=== PATIENT | female | born 1935 | race Caucasian/White ===

== ENCOUNTER → 2016-06-03 | Outpatient (CLI) | payer OTHER, BC ==
[~2016-06-03] MED LIST: ASPCH81X PO; BISA10SU3 PR; CALCTAB5 PO; CHOLTAB3 PO; CRAN1CAP6 PO; FERR325T51 PO; FURO-85 PO; Folic Acid PO; GABA-112 PO; GLC500 PO; IBAN150T PO; LEVO75TA5 PO; LSN25 PO; MAGNSUS PO; MIRA1TAB3 PO; MULT-411; ONDA4TAB46 PO; POLY335019 PO; SITA1TAB27 PO; SODIENE PR; TRAM-10 PO; VIT B-12 PO; VIT E PO; VITA C PO; sodium chloride PO
== END | disposition home or self-care (01) ==
LOC: C.LAB 12:57
PROVIDERS: ATTEND Nurse Practitioner Family
DX: R32 Unspecified urinary incontinence (principal); R35.0 Frequency of micturition

== ENCOUNTER → 2016-09-17 | Outpatient (CLI) | payer OTHER, BC | END | disposition home or self-care (01) | LOC: C.LABSPEC 10:14 | PROVIDERS: ATTEND Urology | DX: H91.90 Unspecified hearing loss, unspecified ear (principal); H69.80 Other specified disorders of Eustachian tube, unspecified ear; E11.22 Type 2 diabetes mellitus with diabetic chronic kidney disease; N18.3 Chronic kidney disease, stage 3 (moderate); H74.8X9 Other specified disorders of middle ear and mastoid, unspecified ear; R30.0 Dysuria ==

== ENCOUNTER → 2016-10-30 | Outpatient (CLI) | payer OTHER, BC | END | disposition home or self-care (01) | LOC: C.LABSPEC 17:04 | PROVIDERS: ATTEND Urology | DX: R33.9 Retention of urine, unspecified (principal); N39.0 Urinary tract infection, site not specified; R32 Unspecified urinary incontinence; R35.0 Frequency of micturition ==

== ENCOUNTER → 2017-05-28 | Outpatient (CLI) | payer OTHER, BC | END | disposition home or self-care (01) | LOC: C.LABSPEC 17:48 | PROVIDERS: ATTEND Urology | DX: N39.0 Urinary tract infection, site not specified (principal); R32 Unspecified urinary incontinence; R35.0 Frequency of micturition ==

== ENCOUNTER → 2017-07-22 | Outpatient (CLI) | payer OTHER, BC | END | disposition home or self-care (01) | LOC: C.LABBC 15:13 | PROVIDERS: ATTEND Nurse Practitioner Adult Health | DX: N39.0 Urinary tract infection, site not specified (principal) ==

== ENCOUNTER → 2017-08-13 | Outpatient (CLI) | payer OTHER, BC ==
[2017-08-13 19:38] LABS: BLOOD UREA NITROGEN 42 mg/dl (7-18); CREATININE 0.77 mg/dl (0.60-1.20)
== END | disposition home or self-care (01) ==
LOC: C.LAB 17:01
PROVIDERS: ATTEND Nurse Practitioner Adult Health
DX: N39.0 Urinary tract infection, site not specified (principal)

== ENCOUNTER → 2017-08-18 | Outpatient (CLI) | payer OTHER, BC ==
[~2017-08-18] MED LIST changes: +OPTIRAY 320 IV PRN
--- NOTE | 2017-08-18 08:46 | DIAGNOSTIC IMAGING REPORT ---
ABD/PELVIS COMBO CLINICAL HISTORY: 82 years-old Female presenting with N39.0 Urinary tract infection, . TECHNIQUE: Multidetector CT of the abdomen and pelvis was performed before and after the administration of intravenous contrast. IV contrast: 118 mL of Optiray 320. A dose lowering technique was used consistent with the principles of ALARA (as low as reasonably achievable). COMPARISON: 09/29/2015. CT DOSE (mGy.cm): The estimated cumulative dose is 744.00 mGycm. FINDINGS: Employee Benefits Coordinator topogram: Scoliosis. Lung bases: Evidence of bronchiectasis and subpleural reticulation consistent with fibrotic change and chronic lung disease. Cicatrizing atelectasis with focal bronchiectasis in the medial segment of the right middle lobe. Normal heart size. Coronary artery, aortic valve, and minimal mitral annular calcification. No pericardial or pleural effusion. Liver: Normal morphology. Normal density. No liver lesion. Patent hepatic vasculature. Biliary: No intrahepatic or extrahepatic biliary ductal dilatation. Normal gallbladder. Pancreas: A portion of the pancreatic tail is contained within the large hiatal hernia. Pancreatic parenchyma grossly normal. Spleen: Parenchymal calcification suggest a history of chronic granulomatous infection. Adrenal glands: Poorly visualized. Kidneys and ureters: No nephrolithiasis. Subcentimeter hypodensity in the right kidney consistent with simple cyst. No additional renal lesion. Normal excretion of contrast from the bilateral kidneys. No filling defect in the renal collecting systems. No hydronephrosis. The left ureter is normal though mildly dilated. The right ureter is normal in the proximal portion and also mildly dilated though poorly opacified in the mid to distal portion. The mid to distal ureter remains poorly opacified on delayed imaging. Bladder: Polypoid filling defect or excreted unopacified urine noted in the region of the right lateral trigone at the right ureteropelvic junction. Diffuse wall thickening of the bladder is noted in addition to more significant wall thickening along the posterior bladder wall. Pelvic organs: Uterus surgically absent. Poorly delineated soft tissue in the pelvis may represent collapsed loops of small bowel but is indeterminate without oral contrast. Bowel: Marked stool burden in the cecum through the transverse colon. Bowel is poorly delineated without oral contrast. Left lower quadrant ostomy, which is likely the descending colon. Significant parastomal herniation of small bowel loops. No bowel obstruction. Feces noted in the distal small bowel suggesting delayed transit. Large hiatal hernia. Peritoneal cavity: No free fluid or intraperitoneal gas. Lymph nodes: No gross lymphadenopathy. Vasculature: Atherosclerosis of the normal caliber abdominal aorta. IVC patent. Abdominal wall: Unchanged appearance of the large parastomal hernia in the left mid abdomen. Mild body wall edema. Cachexia. Musculoskeletal: Degenerative changes of the spine. Osteopenia. Multiple compression deformities at the thoracolumbar junction have progressed since the prior exam and involve T11-L1. IMPRESSION: 1. Significant urinary bladder wall thickening, which could relate to infectious cystitis or postradiation change. However, urologic consultation for possible direct visualization is recommended given the degree of wall thickening on the posterior bladder. The apparent polypoid filling defect in the region of the right bladder trigone may represent excreted unopacified urine from the right ureter. 2. No evidence of a solid renal mass. Poor opacification of the mid to distal right ureter limits evaluation in this region. 3. Poorly delineated soft tissue in the pelvis may represent collapsed loops of bowel but is indeterminate without oral contrast. If there is clinical concern, repeat or subsequent evaluation should be performed with oral contrast. 4. Marked stool burden from the cecum to the transverse colon. This suggests constipation. 5. Stable appearance of the parastomal hernia. 6. Large hiatal hernia. 7. Evidence of chronic lung disease. 8. Progressive compression fractures at the thoracolumbar junction. Correlate for point tenderness as these are worse than on prior exam. The report will be called/faxed according to standard departmental protocol. Electronically signed by: Troy Méndez M.D. 08/18/2017 8:44 AM Dictated Date/Time: 08/18/2017 8:25 AM
== END | disposition home or self-care (01) ==
LOC: C.CTS 07:43
PROVIDERS: ATTEND Nurse Practitioner Adult Health
DX: R31.0 Gross hematuria (principal); N39.0 Urinary tract infection, site not specified; K44.9 Diaphragmatic hernia without obstruction or gangrene

== ENCOUNTER → 2017-08-20 | Outpatient (CLI) | payer OTHER, BC ==
[~2017-08-20] MED LIST changes: -OPTIRAY 320 IV PRN
== END | disposition home or self-care (01) ==
LOC: C.LABSPEC 12:43 → C.PATHSPEC 08-21 11:28
PROVIDERS: ATTEND Urology
DX: N39.0 Urinary tract infection, site not specified (principal); R32 Unspecified urinary incontinence; R35.0 Frequency of micturition

== ENCOUNTER → 2017-08-20 | Outpatient (CLI) | payer OTHER, BC ==
[2017-08-20 17:33] LABS: BLOOD UREA NITROGEN 34 mg/dl (7-18)
== END | disposition home or self-care (01) ==
LOC: C.LABBC 14:38
PROVIDERS: ATTEND Nurse Practitioner Adult Health
DX: N39.0 Urinary tract infection, site not specified (principal)

== ENCOUNTER 2019-09-20 02:16 | Inpatient (IN) ==
[2019-09-20] MEDS ORDERED: fentaNYL citrate 100 MCG/2 ML VIAL IV ONE (02:56)
[2019-09-20] MEDS ORDERED: ONDANSETRON INJ 2 MG/ML 2 ML VIAL IV STA (02:56)
--- NOTE | 2019-09-20 03:35 | Emergency Department Note ---
Impression & Plan Fracture, ribs, Fall, Acute electrocardiogram changes, Acute dehydration ED Provider Note NAME: MAR DESAI AGE: 84 SEX: F ARRIVES VIA: Family Vehicle INFORMANT: Patient and the patient's daughter ED PROVIDER(S): Rajni Phillips DO CHIEF COMPLAINT: Left-sided back pain PLAN: Disposition: Admitted to the [facility] Condition: Fair MEDICAL DECISION MAKING: This is an 84-year-old female patient who presents to the emergency department after suffering a fall at home around 930 this evening. The patient has a history of compression fractures but increasing pain to the left side of her back. Patient's family brought her here for evaluation. The patient is CT scan of her thoracic spine and lumbar spine which showed evidence of old thoracic and lumbar compression fractures and rib fractures on the left. However, given the patient's acute trauma on physical exam, I am concerned that the rib fractures noted on CT are acute. The patient continued to have significant pain with any type of even slight movement despite receiving IV pain meds. Patient was also n oted to be somewhat dehydrated with a BUN greater than 40. She was given a bolus of IV normal saline solution. I remain concerned because the patient's EKG was significantly different than 1 from 2018. Troponin was negative but I felt she would require additional cardiac work-up. [facility] and [facility] will evaluate for further management. Triage Nursing notes reviewed and agree them. Additional history obtained from the patient's daughter who is at the bedside Prior medical records reviewed Vital Signs: reviewed and were unremarkable Differential diagnosis: Rib fractures, compression fractures, T-spine fractures, L-spine fractures, pneumothorax, ER treatment provided: IV analgesia, IV antiemetics, IV normal saline solution Diagnostics interpreted by me: ECG: Normal sinus rhythm at 62 with T wave inversions laterally and in leads I and aVL which is a new finding compared to January 24, 2018. This is concerning for ischemic changes. Cardiac Monitoring: Normal sinus rhythm at a rate of 60 Laboratory studies: See below Imaging studies:as per stat rad CT L-spine: There is a compression fracture deformity at the level of L1 with 40% loss of anterior height there is an anterior osteophyte and some sclerosis. There are degenerative changes with intervertebral disc space narrowing at L2- L3, L3-L4, and L4-L5. There are small posterior osteophytes. Impression: Compression fracture deformity at L1 likely chronic. Correlation with prior studies are recommended. CT T-spine: At T5 there is a compression fracture with 25% general loss of height and 50% anterior wedging. Posterior vertebral body wall bows into the spinal canal by an estimated 2 mm at T8 there is a compression fracture with 50% anterior wedging posterior vertebral body wall extends into the spinal canal estimated 2 mm at T11 there is a compression fracture with 60% anterior wedging at T12 there is a compression fracture with 40% anterior wedging. Impression multiple compression fractures are age-indeterminate. The presence of osteophyte formation and sclerosis suggests these may reflect chronic fractures. However there may be an acute superimposed component. Direct impression of prior studies to evaluate for changes recommended. Old appearing left-sided rib fractures. Consultation(s): None HPI: 84/F arrives for evaluation of a fall with severe left-sided mid back pain. This is an 84-year-old female patient who lost her balance around 930 tonight and fell backwards while pushing her Rollator. The patient tried to go to sleep but cannot because of the pain. She states that the pain is so bad that she cannot even cough. The patient does have a history of compression fractures but feels something much more acute. The patient denies striking her head or losing consciousness. ROS: See above HPI for pertinent positives & negatives. A total of 10 systems reviewed and were otherwise negative. PAST MEDICAL HISTORY:See Below PAST SURGICAL HISTORY:See Below FAMILY HISTORY:See Below SOCIAL HISTORY:Lives with her daughter HOME MEDICATIONS:See list ALLERGIES:None VITALS:See Below PHYSICAL EXAMINATION: HEENT: Head - normocephalic and atraumatic. Pupils are equal, round, and reactive to light. Extraocular eye muscles are intact and sclera are anicteric. Nose - moist nasal mucosa without evidence of trauma or discharge. Mouth - moist buccal mucosa with no trauma to the teeth or signs of malocclusion. Neck: The neck is supple and there is no pain to palpation over the posterior cervical spine and no obvious step-offs or deformities. There is no JVD or tracheal deviation. Chest: There are no signs of deformities, contusions or abrasions to the chest wall. There is no obvious crepitus or paradoxical chest rise. Heart: Regular, rate, and rhythm. There is a normal S1 and S2 with no murmurs, clicks, or gallops appreciated. Lungs: Clear to auscultation bilaterally with no wheezes, rales, or rhonchi. Abdomen: Soft, completely nontender, nondistended, with good bowel sounds. There is no sign of trauma such as contusions, abrasions or penetrations. There are no palpable pulsatile masses or hepatosplenomegaly. There is no guarding, rigidity, or rebound noted. Pelvis: Stable to rock and compression. Extremities: No obvious trauma, deformities, contusions, or edema. There are easily palpable peripheral pulses. Neuro: The patient is awake and alert and easily able to follow commands. Muscle strength is 5 out of 5 in all 4 extremities. Otherwise, neuro exam is unremarkable. Back: We sat the patient forward. There is obvious curvature of the spine. The entire thoracic, lumbar, and sacral spine were palpated. There is an obvious contusion noted over the left mid back with pain to palpation in that area and some edema. The patient has pain with palpation to the ribs in that area. ED COURSE: Times/Reassessments: 0240: The patient was evaluated in room C9. A complete history and physical was performed. An order was placed for continuous cardiac monitoring. The patient remains in a normal sinus rhythm at a rate of 60. An IV lock was initiated and labs were drawn as above. A twelve-lead EKG was obtained and was compared to an old one was significantly different. Additional laboratory studies were added. The patient will go for CT scan of the T-spine and L-spine Patient was given IV fentanyl and IV Zofran for pain and nausea. 0420: The patient was rechecked at this time and was actually sleeping. The patient's labs reveal some dehydration with a BUN greater than 40. She was given a 500 cc bolus of saline. 445: The patient was rechecked at this time and remains uncomfortable. I reviewed the results of the labs and CT scans with the daughter. She voiced concern that the patient is still so uncomfortable that she would not be able to get around at home comfortably. I agree with this. I am also concerned about the EKG changes noted in comparison to an EKG from January 2018. [facility] and they can or evaluate for further management. Rajni Phillips, DO Past Med/Surg History Medical History (Updated 09/20/19 @ 08:33 by Rajni Phillips DO) Chronic kidney disease, stage III (moderate) (Chronic) Closed fracture of ankle (Chronic Unknown) "S/P ORIF " Degenerative scoliosis (Chronic) Diabetes (Chronic) Hyperglycemia (Chronic) Hyponatremia Hypothyroidism (Chronic) Rectal prolapse (Chronic) Rectal prolapse (Chronic) Rib fractures (Chronic) Sepsis (Acute 06/14/13) UTI (urinary tract infection) (Chronic) UTI (urinary tract infection) (Acute) Vertebral compression fracture (Chronic) Surgical History (Updated 01/26/18 @ 20:23 by Derian Tapia) Colostomy in place (Chronic) History of colostomy (Chronic) History of left knee replacement (Chronic) Social History (Updated 01/24/18 @ 19:27 by Gwendolyn [place] DO) Preferred Language: Setswana Communication Ability: Effective Swager Operator Required: No Beliefs That Will Affect Care: None marital status: / Current Living Situation: Family Feels Safe at Home: Yes Smoking Status: Never smoker Second Hand Exposure: No ; Hx Alcohol Use: No Hx Substance Use: No Allergies Allergies Allergy/AdvReac Type Severity Reaction Status Date / Time No Known Drug Allergies Allergy Unknown Verified 09/20/19 03:31 Home Meds Home Medications Medication Instructions Recorded Confirmed Caltrate 600 plus D 1 tab PO BID 01/24/18 09/20/19 Centrum Silver Women 1 tab PO DAILY 01/24/18 09/20/19 ascorbic acid (vitamin C) [Vitamin 500 mg PO DAILY 01/24/18 09/20/19 C] cranberry extract 250 mg PO DAILY 01/24/18 09/20/19 levothyroxine 75 mcg PO DAILY 01/24/18 09/20/19 lisinopril 2.5 mg PO DAILY 01/24/18 09/20/19 polyethylene glycol 3350 [Miralax] 8.5 g PO BID 01/24/18 09/20/19 vitamin E 200 unit PO DAILY 01/24/18 09/20/19 acetaminophen [Acetaminophen Extra 500 mg PO QPM 09/20/19 09/20/19 Strength] aspirin 81 mg PO DAILY 09/20/19 09/20/19 cyanocobalamin (vitamin B-12) 500 mcg PO DAILY 09/20/19 09/20/19 ferrous gluconate 240 mg PO DAILY 09/20/19 09/20/19 folic acid 0.8 mg PO DAILY 09/20/19 09/20/19 metformin 500 mg PO DAILY 09/20/19 09/20/19 Previous Rx's Medication Instructions Recorded teriparatide 20 mcg/dose (600 20 mcg SQ DAILY #2.4 ml 01/20/19 mcg/2.4 mL) subcutaneous pen injector mirabegron 50 mg tablet,extended 50 mg PO DAILY #90 tab 02/23/19 release 24 hr calcitriol 0.25 mcg capsule 0.25 mcg PO DAILY #30 cap 04/28/19 amoxicillin 500 mg tablet 500 mg PO DAILY #90 tab 09/07/19 Results & Data (ED) Vital Signs Vital Signs - 24 hr 09/20/19 02:18 09/20/19 03:22 09/20/19 03:49 Temperature 36.8 C Temperature Source Oral Pulse Rate 71 Pulse Rate [Bilateral Apical] 62 61 Respiratory Rate 16 20 16 Respiratory Depth Normal Blood Pressure 177/91 H Blood Pressure [Right Arm] 140/68 151/65 H Blood Pressure Mean 119 Blood Pressure Mean [Right Arm] 92 93 Pulse Oximetry 98 94 100 Oxygen Delivery Method Room Air Room Air Nasal Cannula Oxygen Flow Rate 3 Sepsis Recent Fever Within 48 Hours No Sepsis New/Unexplained Change in Mental Status No Sepsis Action Taken by Nursing No Action Required 09/20/19 06:12 Temperature Temperature Source Pulse Rate Pulse Rate [Bilateral Apical] 60 Respiratory Rate 18 Respiratory Depth Blood Pressure Blood Pressure [Right Arm] 146/73 H Blood Pressure Mean Blood Pressure Mean [Right Arm] 97 Pulse Oximetry 100 Oxygen Delivery Method Room Air Oxygen Flow Rate Sepsis Recent Fever Within 48 Hours Sepsis New/Unexplained Change in Mental Status Sepsis Action Taken by Nursing Laboratory Data Result diagrams: 09/20/19 03:01 09/20/19 03:01 Lab Results 09/20/19 09/20/19 09/20/19 Range/Units 03:01 03:01 03:01 WBC 9.16 (4.8-10.8) K/uL RBC 3.62 L (4.2-5.4) M/uL Hgb 11.1 L (12.0-16.0) g/dL Hct 34.7 L (37-47) % MCV 95.9 (80-100) fL MCH 30.7 (25-34) pg MCHC 32.0 (32-36) g/dL RDW Std Deviation 48.0 H (36.4-46.3) fL RDW Coeff of Franchesca 13.8 (11.5-14.5) % Plt Count 235 (130-400) K/uL MPV 10.3 (7.4-10.4) fL Immature Gran % (Auto) 0.2 % Neut % (Auto) 79.1 % Lymph % (Auto) 6.6 % Elk % (Auto) 12.4 % Eos % (Auto) 1.5 % Baso % (Auto) 0.2 % Immature Gran # (Auto) 0.02 (0.00-0.02) K/uL Neut # (Auto) 7.24 H (1.4-6.5) K/uL Lymph # (Auto) 0.60 L (1.2-3.4) K/uL Elk # (Auto) 1.14 H (0.11-0.59) K/uL Eos # (Auto) 0.14 (0-0.5) K/uL Baso # (Auto) 0.02 (0-0.2) K/uL Sodium 138 (136-145) mmol/L Potassium 4.3 (3.5-5.1) mmol/L Chloride 102 (98-107) mmol/L Carbon Dioxide 31 (21-32) mmol/L Anion Gap 5.0 (3-11) BUN 41 H (7-18) mg/dl Creatinine 0.77 (0.6-1.2) mg/dl Est Cr Clr Drug Dosing Not Reportable Est GFR ( Amer) 81.0 Est GFR (Non-Af Amer) 69.9 BUN/Creatinine Ratio 53.9 H (10-20) Glucose 147 H (70-99) mg/dl Calcium 11.3 H (8.5-10.1) mg/dl Total Bilirubin 0.3 (0.2-1) mg/dl AST 23 (15-37) U/L ALT 17 (12-78) U/L Alkaline Phosphatase 60 (45-117) U/L Troponin I 0.019 (0-0.045) ng/ml Total Protein 7.5 (6.4-8.2) gm/dl Albumin 3.7 (3.4-5.0) gm/dl Globulin 3.8 (2.5-4.0) gm/dl Albumin/Globulin Ratio 1.0 (0.9-2) Administered Medications Discontinued Medications Fentanyl Citrate (Fentanyl Citrate) 25 mcg IV NOW ONE Stop: 09/20/19 02:57 Last Admin: 09/20/19 03:21 Dose: 25 mcg Documented by: [id number] Sodium Chloride (Nss) 500 mls @ 999 mls/hr IV .Q31M ONE Stop: 09/20/19 04:45 Last Infusion: 09/20/19 05:11 Dose: 0 mls/hr Documented by: [id number] Admin: 09/20/19 04:27 Dose: 999 mls/hr Documented by: [id number] Morphine Sulfate (Morphine Sulfate) Confirm Administered Dose 4 mg .ROUTE .STK- MED ONE Stop: 09/20/19 06:51 Last Admin: 09/20/19 06:59 Dose: 4 mg Documented by: [id number] Ondansetron HCl (Zofran) 4 mg IV NOW STA Stop: 09/20/19 02:57 Last Admin: 09/20/19 03:12 Dose: 4 mg Documented by: [id number] Discharge Plan Visit Data *Final* Discharge Date/Time: 09/20/19 07:01 Chief Complaint: Fall Stated Complaint: FALL, HURT BACK AND LEFT SIDE ED Provider: Rajni Phillips Discharge Problem: Fracture, ribs, Fall, Acute electrocardiogram changes, Acute dehydration Patient Disposition: Admitted As Inpatient Discharge Instructions Interventions: ED Discharge Assessment Last Done: 09/20/19 07:01 Discharge Problem: Fracture, ribs Qualifiers: Encounter type: initial encounter Rib fracture type: multiple ribs Fracture type: closed Laterality: left Qualified Code(s): S22.42XA - Multiple fractures of ribs, left side, initial encounter for closed fracture Fall Qualifiers: Encounter type: initial encounter Qualified Code(s): W19.XXXA - Unspecified fall, initial encounter
[2019-09-20 03:41] LABS: Basophils # (auto) 0.02 K/uL (0-0.2); Basophils % (auto) 0.2 %; Eosinophils # (auto) 0.14 K/uL (0-0.5); Eosinophils % (auto) 1.5 %; Hematocrit (blood only) 34.7 % (37-47); Hemoglobin 11.1 g/dL (12.0-16.0); Immature Granulocytes # (auto) 0.02 K/uL (0.00-0.02); Immature Granulocytes % (auto) 0.2 %; Lymphocytes % (auto) 6.6 %; Mean Corpuscular Hemoglobin 30.7 pg (25-34); Mean Corpuscular Volume 95.9 fL (80-100); Mean Platelet Volume 10.3 fL (7.4-10.4); Monocytes # (auto) 1.14 K/uL (0.11-0.59); Monocytes % (auto) 12.4 %; Neutrophils # (auto) 7.24 K/uL (1.4-6.5); Neutrophils % (auto) 79.1 %; Platelet Count 235 K/uL (130-400); RDW Coefficient of Variation 13.8 % (11.5-14.5); Red Blood Count 3.62 M/uL (4.2-5.4); White Blood Count 9.16 K/uL (4.8-10.8)
[2019-09-20 04:01] LABS: Alanine Aminotransferase 17 U/L (12-78); Albumin Level 3.7 gm/dl (3.4-5.0); Aspartate Aminotransferase 23 U/L (15-37); BUN Creatinine Ratio 53.9 (10-20); Blood Urea Nitrogen 41 mg/dl (7-18); Calcium 11.3 mg/dl (8.5-10.1); Carbon Dioxide 31 mmol/L (21-32); Chloride 102 mmol/L (98-107); Est GFR (Non-African American) 69.9; Glucose 147 mg/dl (70-99); Potassium 4.3 mmol/L (3.5-5.1); Sodium 138 mmol/L (136-145)
[2019-09-20 04:04] LABS: Alkaline Phosphatase 60 U/L (45-117); Bilirubin,Total 0.3 mg/dl (0.2-1); Globulin 3.8 gm/dl (2.5-4.0); Total Protein 7.5 gm/dl (6.4-8.2)
[2019-09-20] MEDS ORDERED: SODIUM CHLORIDE 0.9% 500 ML IV ONE (04:15)
[2019-09-20] MEDS ORDERED: MoRPHine SULFATE 10 MG/ML CARP/VIAL IV PRN (06:33)
[2019-09-20] MEDS ORDERED: MoRPHine SULFATE 4 MG/ML 1 ML CARP\\VIAL ONE (06:50)
--- NOTE | 2019-09-20 07:02 | History & Physical Report ---
Date of Service September 20, 2019 Assessment & Plan Admission and Anticipated Discharge Date Admission Date: 84 yo F w/ PMHx. of CKD, compression fx. of T8, hypothyroidism, diabetes, colostomy, and left knee replacement who is presenting after a fall that could be mechanical, but will need to be evaluated for cardiac origin, less likely neurologic cause given no focal neurologic findings and no post ictal state. Deconditioning, progressive over the last couple months - OT/PT ordered Cardiac evaluation w/ abnormal EKG - cardiology consulted - initial troponin nl, will get serial troponin - TTE ordered - continue to follow electrolytes with AM CMP Acute pain - Morphine for severe pain - Lidoderm patch Compression fracture of thoracic spine - ordered orthopedic consult to evaluate for potential kyphoplasty DVT: lovenox Diet: regular Code: DNR/DNI History of Present Illness Chief Complaint: fall Primary Care Provider: Krunal Salcido Keila Gonzales fell backwards at 9:30PM 09/18. She had a lot of pain after this and at 1-1:30 daughter Bev Reece brought her to the ER. The daughter was able to help give some of the history. She states shat she did not see her mom fall, but heard her and then came to see her mom on the floor. She did not think that her mom hit her head. She was going from the bedroom to the bathroom and did note there was light in the room and no carpet. Daughter noticed a large lump on her left side of her back. She has never had a prior event like this but pt. has degenerative scoliosis and progressive limitations with mobility over the last couple months. Daughter explains difficulty initiation walking and trouble lifting her feet up. She was using a walker with wheels on it. After the fall she was slowly brought up to a chair and then was able to walk, but had increased pain. Daughter states that she did not see any abnormal movements when she found her mother on the floor. When asking Keila Gonzales about what happened she explained that she lost her balance and fell backward, she did not hit anything on the way down and fell on her spine. She remembers the events prior to falling, the fall and after falling. No recent medication changes, no recent illnesses, no travel. Allergies Allergy/AdvReac Type Severity Reaction Status Date / Time No Known Drug Allergies Allergy Unknown Verified 09/20/19 03:31 Home Medications Home Medications Medication Instructions Recorded Confirmed Type Caltrate 600 plus D 1 tab PO BID 01/24/18 09/20/19 History Centrum Silver Women 1 tab PO DAILY 01/24/18 09/20/19 History ascorbic acid (vitamin C) [Vitamin 500 mg PO DAILY 01/24/18 09/20/19 History C] cranberry extract 250 mg PO DAILY 01/24/18 09/20/19 History levothyroxine 75 mcg PO DAILY 01/24/18 09/20/19 History vitamin E 200 unit PO DAILY 01/24/18 09/20/19 History teriparatide 20 mcg/dose (600 20 mcg SQ DAILY #2.4 ml 01/20/19 09/20/19 Rx mcg/2.4 mL) subcutaneous pen injector mirabegron 50 mg tablet,extended 50 mg PO DAILY #90 tab 02/23/19 09/20/19 Rx release 24 hr calcitriol 0.25 mcg capsule 0.25 mcg PO DAILY #30 cap 04/28/19 09/20/19 Rx amoxicillin 500 mg tablet 500 mg PO DAILY #90 tab 09/07/19 09/20/19 Rx acetaminophen [Acetaminophen Extra 500 mg PO QPM 09/20/19 09/20/19 History Strength] aspirin 81 mg PO DAILY 09/20/19 09/20/19 History cyanocobalamin (vitamin B-12) 500 mcg PO DAILY 09/20/19 09/20/19 History ferrous gluconate 240 mg PO DAILY 09/20/19 09/20/19 History folic acid 0.8 mg PO DAILY 09/20/19 09/20/19 History metformin 500 mg PO DAILY 09/20/19 09/20/19 History acetaminophen [Mapap 650 mg PO Q4H PRN #30 tab 09/24/19 Rx (acetaminophen)] calcitonin (salmon) 1 spray NA QAM #3.7 ml 09/24/19 Rx lidocaine 1 patch TRANSDERMAL QAM #15 ea 09/24/19 Rx magnesium hydroxide [Milk of 30 ml PO Q6H PRN #118 ml 09/24/19 Rx Magnesia] polyethylene glycol 3350 [Miralax] 17 g PO BID #0 ea 09/24/19 09/20/19 Rx sennosides-docusate sodium 1 tab PO QAM #30 tab 09/24/19 Rx [Senokot-S] tapentadol [Nucynta ER] 50 mg PO Q12 #60 tab 09/24/19 Rx tapentadol [Nucynta] 50 mg PO Q4H PRN #30 tab 09/24/19 Rx Past Med/Surg History Medical History (Updated 09/24/19 @ 08:54 by Krunal Lucio PA-C) Chronic kidney disease, stage III (moderate) (Chronic) Closed fracture of ankle (Inactive ~2011) "S/P ORIF " Degenerative scoliosis (Inactive) Feeling of incomplete bladder emptying (Inactive) Frequent UTI (Inactive) Gross hematuria (Inactive 03/2019) Hyponatremia (2018) Impacted cerumen of both ears Neurogenic bladder (Inactive) Non-traumatic compression fracture of T8 thoracic vertebra (Inactive 2018) Osteoporosis Rectal prolapse (Inactive) Rib fractures (Inactive 2017) Sepsis (Acute 2013) Urinary incontinence (Inactive) Surgical History Colostomy in place (Chronic) History of left knee replacement (Inactive) Family History No significant past medical history Social History Preferred Language: Maori Communication Ability: Effective Food Products Tester Required: No Beliefs That Will Affect Care: None marital status: / Current Living Situation: Family Feels Safe at Home: Yes Smoking Status: Never smoker Second Hand Exposure: No ; Hx Alcohol Use: No Hx Substance Use: No Review of Systems Review of Systems: Constitutional: denies fever, chills, nausea or vomiting Head: denies trauma, LOC Neuro: denies slurring of speech, focal weakness GI: denies new constipation or abdominal pain Cardiac: denies chest pain or palpitations : denies changes in frequency Physical Exam Constitutional: + thin; no acute distress Eyes: PERRL, conjunctivae normal, anicteric sclerae EOM intact bilaterally ENMT: external ear and nose normal, oropharynx normal Neck: trachea midline, no thyromegaly Respiratory: normal respiratory effort, lungs clear to auscultation Cardiovascular: RRR, no murmur, no edema Vessels: no JVD and no carotid bruit Extremities: no edema Gastrointestinal (Abdomen): normal bowel sounds, soft, nontender, no hepatosplenomegaly Musculoskeletal: Strength intact in the upper extremity Bruising and tenderness in the thoracic Neurologic: CN's II-XI intact bilaterally; no focal motor deficits Speech / Cognition: normal speech Psychiatric: A+Ox3, euthymic affect Results & Data Results & Data ([facility]) Vital Signs (Past 12 Hours) Vital Signs Temp Pulse Pulse Resp BP BP Pulse Ox 09/20/19 06:12 60 18 146/73 H 100 09/20/19 03:49 61 16 151/65 H 100 09/20/19 03:22 62 20 140/68 94 09/20/19 02:18 36.8 C 71 16 177/91 H 98 Code Status & VTE Plan Code Status DNR/DNI VTE Prophylaxis Plan VTE Prophylaxis will be ordered: Yes Supervising Physician Co-Signing Physician Notes Attending addendum: I have physically seen this patient, have supervised the medical residents activities, and agree with the H&P unless as otherwise noted. Assessment and Plan: Abnormal EKG- The patient will be admitted to telemetry for serial cardiac enzymes, serial EKG's, cardiac rhythm monitoring and a 2-D echocardiogram with Dopplers. Follow serial laboratories. Consult cardiology. Multiple thoracic spine fractures with anterior wedging varying from 40 to 60%- Consult orthopedics for possible intervention with kyphoplasty. If not amenable to kyphoplasty, will consult pain management. Remainder of orders and notations as noted. Resident Activity Tracking Resident Involvement: Resident Care Provided Care Provided: Adult Hospital Medicine
[2019-09-20] MEDS ORDERED: MAGNESIUM HYDROXIDE SUSP 30 ML UDC PO PRN (07:38)
[2019-09-20] MEDS ORDERED: ALUMINUM/MAGNESIUM SUSP 30 ML UDC PO PRN (07:38)
[2019-09-20] MEDS ORDERED: ONDANSETRON INJ 2 MG/ML 2 ML VIAL IV PRN (07:38)
--- NOTE | 2019-09-20 07:45 | CT Scan Report ---
CT OF THE THORACIC SPINE CLINICAL HISTORY: fall - left sided trauma COMPARISON STUDY: Chest CT January 19, 2018. Thoracic spine radiographs August 17, 2018. TECHNIQUE: Helical axial images of the thoracic spine were obtained. Sagittal and coronal reconstru ctions were viewed. Automated exposure control was utilized for the study. A dose lowering techniqu e was utilized adhering to the principles of ALARA. FINDINGS: Note is made of severe compression fractures of T5, T8 T11, T12 and L1. The T5 fracture is new since CT of January 19, 2018 however is sclerotic. This fracture is likely chronic. The remainde r of the compression fractures were present on prior exam and are chronic. There is mild retropulsion at several levels. Note is made of acute appearing nondisplaced fractures of the left transverse pro cesses of T9 and T10. Note is made of multiple old bilateral rib fractures. In addition, there are ac [place] fractures of the posterolateral left eighth through 11th ribs. These are nondisplaced. No pneumot horax is shown within visualized portions of the chest. There is biapical scarring. Subpleural opacit ies reflect atelectasis. Large hiatal hernia is present. IMPRESSION: 1. Acute appearing nondisplaced fractures of the left transverse processes of T9 and T10. 2. Numerous old thoracic spine compression fractures, as described above. 3. Acute nondisplaced fractures of the left eighth through 11th ribs. No pneumothorax. Findings discussed with Dr. Bosch at time of dictation. ACT 112: Negative or not required by law. Electronically signed by: Thiago Aly M.D. 09/20/2019 7:43 AM
--- NOTE | 2019-09-20 07:47 | CT Scan Report ---
CT lumbar spine wo con CT DOSE: CLINICAL HISTORY: Back pain status post trauma TECHNIQUE: Helical images were acquired in transverse plane. Reformatted sagittal and coronal images were reviewed. A dose lowering technique was utilized adhering to the principles of ALARA. CONTRAST: No contrast was administered COMPARISON STUDY: MRI dated 07/12/2011 FINDINGS: L1-2 level: There is no evidence of significant disc bulge or focal herniation. There is no evidence of spinal or foraminal stenosis. L2-3 level: There is marked disc desiccation. There is mild posterior osteophytic spurring. There is moderate spinal canal narrowing. There is no significant foraminal stenosis L3-4 level: There is marked disc degeneration. There is minor spinal canal narrowing. There is facet joint arthropathy. There is mild left-sided foraminal narrowing L4-5 level: Diffuse circumferential disc bulge. There is disc degeneration. There is minor spinal can al narrowing. There is moderate left-sided foraminal narrowing. L5-S1 level: There is circumferential disc bulge. There is mild to moderate spinal canal narrowing. T here is left greater than right foraminal narrowing. The bones are osteopenic. There is an old moderate to severe L1 compression fracture. There is an inf erior endplate T12 compression deformity. No acute fractures or traumatic subluxations are visualized . IMPRESSION: 1. Old L1 compression fracture 2. No acute fractures or traumatic subluxations 3. Multilevel spondylytic changes ACT 112: Negative or not required by law. Electronically signed by: Kwesi Watters M.D. 09/20/2019 7:46 AM
[2019-09-20] MEDS ORDERED: PATIENT'S HEIGHT AND/OR WEIGHT NEEDED SCH (08:15)
--- NOTE | 2019-09-20 08:20 | Orthopedic Consultation ---
Date of Consultation September 20, 2019 Assessment & Plan (1) Fracture of thoracic transverse process: At this time patient does have multiple subacute to chronic fractures throughout the thoracolumbar spine. Her injury today is consistent with transverse process fractures of mid thoracic region. These would be treated nonoperatively. She will require pain control. I would not brace her for these injuries. She should avoid lifting anything greater than 5 pounds. I suspect she will progress appropriately throughout the next few weeks. Present on Admission?: Yes History of Present Illness Reason for Consultation: Back pain status post fall Attending Physician: Hill Powell MD History of Present Illness This is an 84-year-old female unfortunately with a fall yesterday at home. She comes emergency room with difficulties secondary to pain. Symptoms are mostly i n the mid thoracic region. She denies any leg pain arm pain numbness or tingling to the extremities. Allergies Allergy/AdvReac Type Severity Reaction Status Date / Time No Known Drug Allergies Allergy Unknown Verified 09/20/19 03:31 Home Medications Home Medications Medication Instructions Recorded Confirmed Type Caltrate 600 plus D 1 tab PO BID 01/24/18 09/20/19 History Centrum Silver Women 1 tab PO DAILY 01/24/18 09/20/19 History ascorbic acid (vitamin C) [Vitamin 500 mg PO DAILY 01/24/18 09/20/19 History C] cranberry extract 250 mg PO DAILY 01/24/18 09/20/19 History levothyroxine 75 mcg PO DAILY 01/24/18 09/20/19 History lisinopril 2.5 mg PO DAILY 01/24/18 09/20/19 History polyethylene glycol 3350 [Miralax] 8.5 g PO BID 01/24/18 09/20/19 History vitamin E 200 unit PO DAILY 01/24/18 09/20/19 History teriparatide 20 mcg/dose (600 20 mcg SQ DAILY #2.4 ml 01/20/19 09/20/19 Rx mcg/2.4 mL) subcutaneous pen injector mirabegron 50 mg tablet,extended 50 mg PO DAILY #90 tab 02/23/19 09/20/19 Rx release 24 hr calcitriol 0.25 mcg capsule 0.25 mcg PO DAILY #30 cap 04/28/19 09/20/19 Rx amoxicillin 500 mg tablet 500 mg PO DAILY #90 tab 09/07/19 09/20/19 Rx acetaminophen [Acetaminophen Extra 500 mg PO QPM 09/20/19 09/20/19 History Strength] aspirin 81 mg PO DAILY 09/20/19 09/20/19 History cyanocobalamin (vitamin B-12) 500 mcg PO DAILY 09/20/19 09/20/19 History ferrous gluconate 240 mg PO DAILY 09/20/19 09/20/19 History folic acid 0.8 mg PO DAILY 09/20/19 09/20/19 History metformin 500 mg PO DAILY 09/20/19 09/20/19 History Patient History Medical History (Updated 09/20/19 @ 08:18 by Ranjan Pineda DO) Chronic kidney disease, stage III (moderate) (Chronic) Closed fracture of ankle (Chronic Unknown) "S/P ORIF " Degenerative scoliosis (Chronic) Diabetes (Chronic) Hyperglycemia (Chronic) Hyponatremia Hypothyroidism (Chronic) Rectal prolapse (Chronic) Rectal prolapse (Chronic) Rib fractures (Chronic) Sepsis (Acute 06/14/13) UTI (urinary tract infection) (Chronic) UTI (urinary tract infection) (Acute) Vertebral compression fracture (Chronic) Surgical History (Updated 01/26/18 @ 20:23 by Derian Tapia) Colostomy in place (Chronic) History of colostomy (Chronic) History of left knee replacement (Chronic) Social History (Updated 01/24/18 @ 19:27 by Gwendolyn [place] DO) Preferred Language: Kazakh Communication Ability: Effective Warp Hauler Required: No Beliefs That Will Affect Care: None marital status: / Current Living Situation: Family Feels Safe at Home: Yes Smoking Status: Never smoker Second Hand Exposure: No ; Hx Alcohol Use: No Hx Substance Use: No Physical Exam Physical Exam: Patient is alert and oriented. She is able to move her arms and legs without evidence of antalgia. Reasonable strength to testing. Results & Data ([facility]) Vital Signs (Past 12 Hours) Vital Signs Temp Pulse Pulse Resp BP BP Pulse Ox 09/20/19 06:12 60 18 146/73 H 100 09/20/19 03:49 61 16 151/65 H 100 09/20/19 03:22 62 20 140/68 94 09/20/19 02:18 36.8 C 71 16 177/91 H 98
[2019-09-20] MEDS: LIDOCAINE 5% 1 PATCH TD SCH (09:14)
[2019-09-20] MEDS: MIRABEGRON ER 25 MG TAB PO SCH (09:14)
[2019-09-20] MEDS: LEVOTHYROXINE SODIUM 75 MCG TABLET PO SCH (09:15)
[2019-09-20] MEDS: ASPIRIN 81 MG ECTAB PO SCH (09:15)
--- NOTE | 2019-09-20 09:40 | Electrocardiogram Report ---
Test Reason : Blood Pressure : / mmHG Vent. Rate : 062 BPM Atrial Rate : 062 BPM P-R Int : 178 ms QRS Dur : 132 ms QT Int : 432 ms P-R-T Axes : 046 -57 177 degrees QTc Int : 438 ms Poor data quality, interpretation may be adversely affected Normal sinus rhythm Left axis deviation Non-specific intra-ventricular conduction block Marked T wave abnormality consider anterolateral ischemia Abnormal ECG When compared with ECG of 24-JAN-2018 13:55, T-wave inversion in Anterolateral leads now present Confirmed by Ulysses De Leon ([id number]) on 09/20/2019 9:39:47 AM Referred By: REFERRED SELF Confirmed By:Ulysses De Leon
--- NOTE | 2019-09-20 09:48 | Electrocardiogram Report ---
Test Reason : Blood Pressure : / mmHG Vent. Rate : 074 BPM Atrial Rate : 074 BPM P-R Int : 172 ms QRS Dur : 126 ms QT Int : 380 ms P-R-T Axes : 047 -55 130 degrees QTc Int : 421 ms Normal sinus rhythm Left axis deviation Non-specific intra-ventricular conduction block T wave abnormality, consider anterolateral ischemia Abnormal ECG When compared with ECG of 20-Sep-2019 03:26:24; T-wave inversion in Anterolateral leads less pronounced Confirmed by Ulysses De Leon ([id number]) on 09/20/2019 9:47:57 AM Referred By: REFERRED SELF Confirmed By:Ulysses De Leon
[2019-09-20] MEDS: ENOXAPARIN INJ 30 MG/0.3 ML SYR SQ SCH (10:30)
--- NOTE | 2019-09-20 11:32 | Cardiology Consultation ---
Date of Consultation September 20, 2019 Assessment & Plan (1) Acute electrocardiogram changes: ECG with nonspecific T wave inversions in the context of a recent fall in this elderly patient. At this point, no evidence of ischemia with negative troponin x2, lack of chest pain, and lack of evolving ECG changes. The T wave inversions could be secondary to neurogenic phenomenon (although there is no evidence of a stroke) or could simply represent gradual changes in her baseline since her last ECG was obtained in 2018. Would obtain daily ECGs while in hospital for the next day or two to establish her new baseline ECG (once any transient changes resolved) for future reference. (2) Fall: It is not clear whether this was a mechanical fall or she had an actual syncopal episode. Since she does describe potentially orthostatic symptoms and is only on a trivial dose of lisinopril, suspect the risk/benefit ratio of ongoing antihypertensive treatment is more risk than benefit at this point. Her in hospital blood pressures have been normotensive to mildly hypertensive, but in the context of acute pain this would be unlikely to represent her baseline tendencies. If she has no orthostatic symptoms and demonstrates persistent elevated blood pressure as an outpatient, could always restart her lisinopril at that time. (3) Cardiac murmur: She does have a cardiac murmur suggesting mild to moderate aortic s tenosis. Agree with echocardiogram to evaluate this further. If more than moderate aortic stenosis, this would certainly further dissuade any use of antihypertensives. Further recommendations after echocardiogram reviewed. (4) Fracture, ribs: (5) Fracture of thoracic transverse process: (6) Chronic kidney disease, stage III (moderate): (7) Diabetes: History of Present Illness Reason for Consultation: New T wave inversions. Requesting Physician: Hill Powell MD Attending Physician: Hill Powell MD History of Present Illness 84-year-old woman with history of diabetes mellitus (oral agents only), hypothyroidism, colostomy, chronic kidney disease, and prior thoracic vertebral compression fractures who was admitted 09/20/2019 after a fall resulting in formerly [facility] thoracic compression fractures. She has no known cardiac history. She awoke during the night and in route to the bathroom with her walker fell and sustained her back injury. She was uncertain whether she lost consciousness briefly. However, she has noted orthostatic lightheadedness from time to time when she gets up in the morning and out of bed. She denies chest pain at any time, dyspnea, subjective palpitations, or prior episodes of presyncope or syncope. She denied any neurologic symptoms. Aside from her low thoracic back pain and left chest wall pain related to her fractures, she had no complaints at the time of my evaluation this morning. Allergies Allergy/AdvReac Type Severity Reaction Status Date / Time No Known Drug Allergies Allergy Unknown Verified 09/20/19 03:31 Home Medications Home Medications Medication Instructions Recorded Confirmed Type Caltrate 600 plus D 1 tab PO BID 01/24/18 09/20/19 History Centrum Silver Women 1 tab PO DAILY 01/24/18 09/20/19 History ascorbic acid (vitamin C) [Vitamin 500 mg PO DAILY 01/24/18 09/20/19 History C] cranberry extract 250 mg PO DAILY 01/24/18 09/20/19 History levothyroxine 75 mcg PO DAILY 01/24/18 09/20/19 History lisinopril 2.5 mg PO DAILY 01/24/18 09/20/19 History polyethylene glycol 3350 [Miralax] 8.5 g PO BID 01/24/18 09/20/19 History vitamin E 200 unit PO DAILY 01/24/18 09/20/19 History teriparatide 20 mcg/dose (600 20 mcg SQ DAILY #2.4 ml 01/20/19 09/20/19 Rx mcg/2.4 mL) subcutaneous pen injector mirabegron 50 mg tablet,extended 50 mg PO DAILY #90 tab 02/23/19 09/20/19 Rx release 24 hr calcitriol 0.25 mcg capsule 0.25 mcg PO DAILY #30 cap 04/28/19 09/20/19 Rx amoxicillin 500 mg tablet 500 mg PO DAILY #90 tab 09/07/19 09/20/19 Rx acetaminophen [Acetaminophen Extra 500 mg PO QPM 09/20/19 09/20/19 History Strength] aspirin 81 mg PO DAILY 09/20/19 09/20/19 History cyanocobalamin (vitamin B-12) 500 mcg PO DAILY 09/20/19 09/20/19 History ferrous gluconate 240 mg PO DAILY 09/20/19 09/20/19 History folic acid 0.8 mg PO DAILY 09/20/19 09/20/19 History metformin 500 mg PO DAILY 09/20/19 09/20/19 History Patient History Medical History Chronic kidney disease, stage III (moderate) (Chronic) Closed fracture of ankle (Inactive ~2011) "S/P ORIF " Degenerative scoliosis (Inactive) Feeling of incomplete bladder emptying (Inactive) Frequent UTI (Inactive) Gross hematuria (Inactive 03/2019) Hyponatremia (2018) Impacted cerumen of both ears Neurogenic bladder (Inactive) Non-traumatic compression fracture of T8 thoracic vertebra (Inactive 2018) Rectal prolapse (Inactive) Rib fractures (Inactive 2018) Sepsis (Acute 2013) Urinary incontinence (Inactive) Surgical History Colostomy in place (Chronic) History of left knee replacement (Inactive) Family History No significant past medical history Social History Preferred Language: [place] Communication Ability: Effective Matrix Plater Required: No Beliefs That Will Affect Care: None marital status: / Current Living Situation: Family Other Information That Helps Us Care for You: No Feels Safe at Home: Yes Safety Concerns: Feels Safe At This Time Smoking Status: Never smoker Second Hand Exposure: No ; Hx Alcohol Use: No Hx Substance Use: No Review of Systems Constitutional: + fatigue; no fever, no chills, no weight loss and no weight gain Eyes: no problem reported Ear, Nose, Mouth, Throat: no problem reported Respiratory: no cough and no dyspnea Cardiovascular: as per Subjective / HPI Gastrointestinal: no abdominal pain No change in colostomy output Genitourinary: no problem reported Musculoskeletal: no myalgia uses a walker Integumentary: no rash and no new lesions Neurologic: no syncope Psychiatric: no problem reported Hematologic / Lymphatic: no easy bleeding and no easy bruising Physical Exam Physical Exam: Elderly white female who appears mildly uncomfortable (sedated for thoracic compression fracture), but answers questions appropriately and is not in acute distress. Skin: no ecchymoses or generalized lesions. HEENT: unremarkable. Neck: Jugular venous pulse normal to mildly reduced, bilateral transmitted murmur versus carotid bruits. Lungs clear. Cardiac: regular rhythm with 2/6 basal systolic ejection murmur rating to the carotids and left sternal border (louder at the apex), no diastolic murmur or gallop. Moderately reduced but audible aortic closure sound, increased pulmonic closure sound. Abdomen: Colostomy bag present left periumbilical region, abdomen soft and nontender. Extremities: no edema, pulses brisk. Neurologic: normal affect, nonfocal. Results & Data ([facility]) Vital Signs (Past 12 Hours) Vital Signs Temp Pulse Pulse Resp BP BP Pulse Ox 09/20/19 06:12 60 18 146/73 H 100 09/20/19 03:49 61 16 151/65 H 100 09/20/19 03:22 62 20 140/68 94 09/20/19 02:18 98.2 F 71 16 177/91 H 98 Laboratory Results 09/20/19 09/20/19 09/20/19 03:01 03:01 03:01 Hgb 11.1 L Creatinine 0.77 Troponin I 0.019 09/20/19 09:15 Hgb Creatinine Troponin I < 0.015 ECG showed sinus rhythm with nonspecific interventricular conduction delay and anterior and lateral T wave inversions which were new compared with 2018 study. Repeat ECG was similar with less pronounced T wave inversions. Chest CT with T9/T10 transverse process fractures & left sided rib fractures in ribs 8-11. PG Care Time/CCT Total # of Minutes Spent Total Time Spent with Patient: Total time spent is greater than 50% in coordination of care (as documented) at patient's floor/unit and/or counseling patient: Coding Level of Care Code 15380 Initial Inpt Care Lvl 3 Diagnoses Acute electrocardiogram changes R94.31 Fall W19.XXXA Encounter type: initial encounter Cardiac murmur R01.1 Fracture, ribs S22.42XA Encounter type: initial encounter Fracture type: closed Laterality: left Rib fracture type: multiple ribs Fracture of thoracic transverse process S22.009A Chronic kidney disease, stage III (moderate) N18.3 Diabetes E11.9 Diabetes mellitus type: type 2 Diabetes mellitus salvage determiner insulin use: without salvage determiner use Diabetes mellitus complication status: without complication (1) Fall Encounter type: initial encounter Qualified Code(s): W19.XXXA - Unspecified fall, initial encounter (2) Fracture, ribs Encounter type: initial encounter Fracture type: closed Laterality: left Rib fracture type: multiple ribs Qualified Code(s): S22.42XA - Multiple fractures of ribs, left side, initial encounter for closed fracture (3) Diabetes Diabetes mellitus type: type 2 Diabetes mellitus salvage determiner insulin use: without salvage determiner use Diabetes mellitus complication status: without complication Qualified Code(s): E11.9 - Type 2 diabetes mellitus without complications
[2019-09-20] MEDS: POLYETHYLENE (MIRALAX) 17 GM PACK PO PRN (12:36)
--- NOTE | 2019-09-20 12:53 | XCELERA ---
[id number] \\[id number]
[2019-09-20] MEDS: ACETAMINOPHEN 325 MG TAB PO PRN ×2 (13:41→21:05)
[2019-09-20] MEDS ORDERED: GLUCAGON FOR INJ 1 MG VIAL SQ PRN (14:45)
[2019-09-20] MEDS ORDERED: DEXTROSE 50% 50 ML SYRINGE IV PRN (14:45)
[2019-09-20] MEDS ORDERED: GLUCOSE 40% GEL 15 GM TUBE PO PRN (14:45)
[2019-09-20] MEDS ORDERED: CARBOHYDRATES FOR HYPOGLYCEMIA PO PRN (14:45)
[2019-09-20] MEDS ORDERED: GLUCOSE 10 TABS/TUBE PO PRN (14:45)
[2019-09-20] MEDS: INSULIN ASPART 100 UNITS/ML 3 ML PEN SC SCH ×2 (17:19→21:01)
--- NOTE | 2019-09-20 17:55 | History & Physical Bridge Note ---
Date of Service September 20, 2019 History & Physical Bridge Note I have examined the patient, reviewed the History & Physical and in the interval since the performance of the History & Physical I have noted the following changes of clinical significance: Pt having pain in left lateral ribs and lower back, but denies chest pain. She has not taken anything for pain except the lidocaine patch. Denies headache or pain anywhere else. She is eating and drinking but appetite not as good as usual. NAD, AAOx3 RRR 3/6 OMA at [facility] CTAB no wcr +TTP over left lateral posterior ribs mid-way dpwn Abd _BS soft NT ND, colostomy bag in place Ext no edema ECG with lateral TWIs, repeat ECG improved TWIs but still present Trop neg x 2 ECHO reviewed, normal EF, no WMAs, elevated RVSP, mild-mod 84 yo female here with mechanical fall most likely and ECG changes, neg for AC. With left sided rib fractures and Left transverse process fractures acute -continue pain control appreciate Cardiology and Ortho Spine consults PT/OT consults and may need rehab placement daily ECG dc lisinopril as per Cardiology recommendations and follow BP Called daughter and left VMs on both numbers listed.
[2019-09-21] MEDS: LEVOTHYROXINE SODIUM 75 MCG TABLET PO SCH (06:11)
[2019-09-21 06:14] LABS: Basophils # (auto) 0.02 K/uL (0-0.2); Basophils % (auto) 0.3 %; Eosinophils # (auto) 0.26 K/uL (0-0.5); Hematocrit (blood only) 34.1 % (37-47); Hemoglobin 10.9 g/dL (12.0-16.0); Immature Granulocytes # (auto) 0.01 K/uL (0.00-0.02); Immature Granulocytes % (auto) 0.2 %; Lymphocytes # (auto) 0.65 K/uL (1.2-3.4); Mean Corpuscular Hemoglobin 31.2 pg (25-34); Mean Corpuscular Volume 97.7 fL (80-100); Mean Platelet Volume 9.6 fL (7.4-10.4); Monocytes # (auto) 0.67 K/uL (0.11-0.59); Monocytes % (auto) 10.3 %; Neutrophils # (auto) 4.91 K/uL (1.4-6.5); Neutrophils % (auto) 75.2 %; Platelet Count 199 K/uL (130-400); RDW Coefficient of Variation 14.1 % (11.5-14.5); RDW Standard Deviation 50.1 fL (36.4-46.3); Red Blood Count 3.49 M/uL (4.2-5.4); White Blood Count 6.52 K/uL (4.8-10.8)
[2019-09-21 06:51] LABS: Albumin Level 3.2 gm/dl (3.4-5.0); BUN Creatinine Ratio 52.9 (10-20); Calcium 9.7 mg/dl (8.5-10.1); Creatinine Clr Calc Pharmacy 48.4 ml/min; Est GFR (African American) 92.7; Potassium 4.2 mmol/L (3.5-5.1)
[2019-09-21 06:54] LABS: Bilirubin,Total 0.4 mg/dl (0.2-1); Globulin 3.3 gm/dl (2.5-4.0); Total Protein 6.5 gm/dl (6.4-8.2)
[2019-09-21] MEDS: MoRPHine SULFATE 10 MG/ML CARP/VIAL IV PRN (07:57)
[2019-09-21] MEDS: MIRABEGRON ER 25 MG TAB PO SCH (08:01)
[2019-09-21] MEDS: ASPIRIN 81 MG ECTAB PO SCH (08:01)
[2019-09-21] MEDS: LIDOCAINE 5% 1 PATCH TD SCH (08:02)
[2019-09-21] MEDS: ENOXAPARIN INJ 30 MG/0.3 ML SYR SQ SCH (08:03)
[2019-09-21] MEDS: INSULIN ASPART 100 UNITS/ML 3 ML PEN SC SCH ×4 (08:07→20:34)
--- NOTE | 2019-09-21 08:30 | Electrocardiogram Report ---
Test Reason : Blood Pressure : / mmHG Vent. Rate : 056 BPM Atrial Rate : 056 BPM P-R Int : 162 ms QRS Dur : 124 ms QT Int : 440 ms P-R-T Axes : 031 -54 220 degrees QTc Int : 424 ms Sinus bradycardia Left axis deviation Non-specific intra-ventricular conduction delay T-wave inversion in Anterior leads Abnormal ECG When compared with ECG of 20-SEP-2019 08:53, T-wave inversion in Anterior leads more pronounced Otherwise no significant change Confirmed by Ulysses De Leon ([id number]) on 09/21/2019 8:29:48 AM Referred By: REFERRED SELF Confirmed By:Ulysses De Leon
[2019-09-21] MEDS: POLYETHYLENE (MIRALAX) 17 GM PACK PO PRN (08:41)
--- NOTE | 2019-09-21 10:41 | Cardiology Progress Note ---
Date of Service September 21, 2019 Assessment & Plan (1) Acute electrocardiogram changes: Etiology of her anterior T wave inversions is still unclear, but there is no evidence for ongoing myocardial ischemia (no anginal chest pain, troponin negative, ECG not evolving). Although T wave inversions can be associated with a neurologic event, they are generally more widespread (she does have minor T inversions laterally as well but has not had focal neurologic symptoms to suggest a CVA). At this point, would assume that this is her "new normal" baseline ECG and, in the absence of any new symptoms, would not pursue further work-up at this time. (2) Fall: As noted, it was not clear whether she had a mechanical fall or she had an actual syncopal episode. Since she does describe potentially orthostatic symptoms and is only on a trivial dose of lisinopril, agree with keeping her off this for now. Would allow for mild hypertension secondary to pain, since this does not reflect her baseline blood pressure and since she is normotensive with blood pressures as low as 114 mmHg systolic when her pain is well-managed. Reevaluate as an outpatient to determine whether to restart antihypertensive regimen. (3) Aortic stenosis: Mild to moderate, not hemodynamically significant. (4) Sinus bradycardia: Persistent mild bradycardia without evidence of profound bradycardia or heart block. No symptoms directly attributable to this, but it would increase her tendency to orthostatic hypotension by reducing her chronotropic response when assuming an upright position. Continue to monitor heart rate as an outpatient, if she does develop symptoms related to this she could be a future pacemaker candidate. Also, since she does not have this compensatory mechanism (reflex tachycardia when standing), this would be an additional reason to hold her antihypertensive for the time being. (5) HTN (hypertension): Variable BP without persistent hypertension currently. Vasoactive medications held. (6) Fracture, ribs: (7) Fracture of thoracic transverse process: Admission and Anticipated Discharge Date Admission Date: September 20, 2019 Subjective l Uneventful night. No change in back or left rib pain secondary to fractures. No anginal type symptoms. No subjective palpitations, presyncope, or syncope. No orthostatic symptoms. Rhythm was sinus bradycardia and sinus rhythm with rate in the 50s and 60s. No profound bradycardia or pauses. BP normotensive to mildly hypertensive systolic readings, normal diastolic readings. Physical Exam Physical Exam: Elderly white female who appears mildly uncomfortable (sedated for thoracic compression fracture), but answers questions appropriately and is not in acute distress. Skin: no ecchymoses or generalized lesions. HEENT: unremarkable. Neck: Jugular venous pulse normal to mildly reduced, bilateral transmitted murmur versus carotid bruits. Lungs clear. Cardiac: regular rhythm with 2/6 basal systolic ejection murmur rating to the carotids and left sternal border (louder at the apex), no diastolic murmur or gallop. Moderately reduced but audible aortic closure sound, increased pulmonic closure sound. Abdomen: Colostomy bag present left periumbilical region, abdomen soft and nontender. Extremities: no edema, pulses brisk. Neurologic: Speech slightly slurred (likely secondary to narcotic analgesics), normal affect, nonfocal. Results & Data ([facility]) Vital Signs (Past 12 Hours) Vital Signs Temp Pulse Pulse Resp BP BP Pulse Ox 09/21/19 07:35 56 L 09/21/19 07:11 97.7 F 58 L 18 175/75 H 95 09/21/19 03:27 97.9 F 58 L 18 165/79 H 94 09/20/19 23:49 97.9 F 59 L 18 117/69 95 09/20/19 23:25 63 Laboratory Results 09/21/19 06:00 Creatinine 0.66 Diagnostic Findings Echocardiogram showed normal LV systolic function (EF 55 to 60%) with diastolic dysfunction. No regional wall motion abnormalities. Mild to moderate aortic stenosis with mild mitral regurgitation and mild pulmonary hypertension. ECG today showed sinus bradycardia at 56 bpm, nonspecific interventricular conduction delay with persistent anterior T wave inversion which was slightly more pronounced than on yesterday's ECG. PG Care Time/CCT Total # of Minutes Spent Total Time Spent with Patient: Total time spent is greater than 50% in coordination of care (as documented) at patient's floor/unit and/or counseling patient: Coding Level of Care Code 06912 Subseq Hosp Care Lvl 3 Diagnoses Acute electrocardiogram changes R94.31 Fall W19.XXXA Encounter type: initial encounter Aortic stenosis I35.0 Sinus bradycardia R00.1 HTN (hypertension) I10 Fracture, ribs S22.42XA Encounter type: initial encounter Fracture type: closed Laterality: left Rib fracture type: multiple ribs Fracture of thoracic transverse process S22.009A (1) Fall Encounter type: initial encounter Qualified Code(s): W19.XXXA - Unspecified fall, initial encounter (2) Fracture, ribs Encounter type: initial encounter Fracture type: closed Laterality: left Rib fracture type: multiple ribs Qualified Code(s): S22.42XA - Multiple fractures of ribs, left side, initial encounter for closed fracture
[2019-09-21] MEDS ORDERED: TRAMADOL HCL 50 MG TABLET PO PRN (13:45)
--- NOTE | 2019-09-21 18:06 | CT Scan Report ---
HEAD CT NONCONTRAST CT DOSE: 691.05 mGy.cm HISTORY: Fall. Assess for stroke. TECHNIQUE: Multiaxial CT images of the head were performed without the use of intravenous contrast. A utomated exposure control was utilized for this study. A dose lowering technique was utilized adheri ng to the principles of ALARA. Comparison: None. Findings: The paranasal sinuses and mastoid air cells are clear. The calvarium and skull base are int act. There is no mass, hematoma, midline shift, acute infarct. White matter hypodensity is nonspecifi c but suggestive of microvascular ischemic change. The ventricles and sulci demonstrate mild age-rela miranda involutional changes. Impression: No acute intracranial abnormality. Atrophy and microvascular ischemic changes. ACT 112: Negative or not required by law. Electronically signed by: Artis Aldana M.D. 09/21/2019 6:04 PM
[2019-09-21] MEDS: DOCUSATE SODIUM/SENNA 50/8.6MG TAB PO SCH (18:21)
--- NOTE | 2019-09-21 19:37 | Hospitalist Progress Note ---
Date of Service September 21, 2019 Assessment & Plan (1) Fall: This patient is an 84 yo female here with mechanical fall versus fall from orthostasis found to have ECG changes, with left sided rib fractures and Left transverse process fractures acute -Daughter reported almost overnight change in ambulatory function approximately 2 weeks ago She does have a history of significant scoliosis which could be contributing Fall seems possibly orthostatic in nature-appreciate cardiology consultation-see below for management -PT/OT evaluations appreciated-recommend rehab placement -continue pain control for fractures (2) Acute electrocardiogram changes: ECG with allegra-lateral TWIs, repeat ECG improved TWIs but still present. ECG again today appears similar Patient has never had any chest pains or shortness of breath. Trop neg x 2 ECHO reviewed, normal EF, no WMAs, elevated RVSP, mild-mod Does have persistent sinus bradycardia-cardiology feels that perhaps she was not able to chronotropic Monty compensate for a lower blood pressure given her bra dycardia. -Cardiology recommends discontinuing her lisinopril and following blood pressures-they are currently elevated likely secondary to pain today but are not typically elevated -Follow on telemetry-no arrhythmias so far -No further evaluation for ischemia needed as per cardiology -CT of the head negative for stroke-performed given change in ambulatory function 2 weeks ago, plus cardiology noted that the ECG changes could be consistent with a stroke (3) Fracture, ribs: -Left eighth through 11th ribs fractured secondary to fall -Added 1 dose of tramadol today but her daughter reports that Nucynta has worked well for her in the past -DC tramadol and start Nucynta 50 mg p.o. every 6 hours as needed for pain -Continue acetaminophen as needed -IV morphine as needed for severe pain -Bowel regimen with senna/docusate and increase MiraLAX to 17 g twice daily -Start incentive spirometry every hour while awake (4) Fracture of thoracic transverse process: Likely Osteoporotic left thoracic T9 and T10 transverse process fractures in elderly female Secondary to fall Seen by orthopedic spine surgery-pain control, no bracing or surgery needed Physical therapy (5) Aortic stenosis: Mild to moderate on echocardiogram Did not contribute to her fall -Follow as an outpatient (6) Sinus bradycardia: As noted above, persistent sinus bradycardia in the 50s-60s No indication for pacemaker at this time (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 twice daily and add senna/docusate (8) Diabetes: Blood sugars well controlled here -Check hemoglobin A1c in the morning, no recent 1 in our lab system -Continue loose sliding scale insulin -She is on no medications at home (9) Hypothyroidism: No TSH since 2018 in our lab system Given history of falls and ambulatory dysfunction, check TSH in the morning -Continue home levothyroxine (10) Osteoporosis: Has been on Forteo and follows with endocrinology With osteoporotic fractures as above and also a history of compression fractures -Continue Forteo upon discharge Vitamin D level was excellent at 47 in 10/2018 (11) HTN (hypertension): Blood pressures normally well controlled and only on minimal dosing of lisinopril which has been held as above Blood pressure is elevated today likely secondary to pain -Continue to follow blood pressures (12) DVT prophylaxis: Lovenox SQ Disposition-likely stable for discharge to rehab if accepted and approved tomorrow at [facility] Discussed her care at length with her daughter Bev on the phone Admission and Anticipated Discharge Date Admission Date: September 20, 2019 Anticipated date of discharge: 09/22/19 Subjective Patient having a lot of pain in the left sided ribs. She is also noticed that she has had no output in her colostomy bag today. She did take a dose of IV morphine at 730 this morning. She denies chest pain or shortness of breath. Denies abdominal pain. Denies lower back pain. She did get up out of bed today with PT and OT but had a lot of pain and did not walk more than a couple steps. Her appetite has been okay today. Nursing thought that she did not eat much but the patient reports she has been eating everything given to her here. I discussed her case at length with her daughter Bev on the phone. Bev notes that the patient had a sudden change about 2 weeks ago where it seemed as if overnight, she had great difficulty with generalized weakness and some cognitive impairment. No specific focal weakness or speech changes. Since that time, the patient has been slow to walk and get around and has to be encouraged to do a lot of things. We discussed getting a brain MRI with both the patient and her daughter but neither are in agreement with this as the patient has significant claustrophobia and because of the pain in her ribs, does not think she could tolerate an MRI. They were both agreeable to a CT scan of the head which was performed and did not show any evidence of stroke. Telemetry with sinus bradycardia with rates in the 50s to 60s, PACs Review of Systems Review of Systems: All systems reviewed & are unremarkable except as noted in HPI & below Physical Exam Constitutional: WD/WN, vitals as above + acute distress (In pain with minimal movement) Eyes: + anicteric sclerae Neck: trachea midline, no thyromegaly Respiratory: normal respiratory effort, lungs clear to auscultation Cardiovascular: Rate/Rhythm: regular rhythm and + bradycardic Heart Sounds: + murmur (3/6 OMA at the RUSB) Extremities: no edema Chest (Breasts): Chest: normal inspection of chest (With positive tenderness to palpation over left posterior lateral ribs, no bruising) Gastrointestinal (Abdomen): normal bowel sounds, soft, nontender, no hepatosplenomegaly (With colostomy bag in place with no stool and minimal gas) Musculoskeletal: Extremities: extremities normal to inspection; no cyanosis and no clubbing Skin: no rashes, warm and dry Neurologic: moves all extremities and awake; no focal motor deficits Psychiatric: Orientation: alert, oriented to person, oriented to place and cooperative Affect: + blunted affect Lymphatic: no lymphedema Results & Data Results & Data ([facility]) Vital Signs (Past 12 Hours) Vital Signs Temp Pulse Pulse Resp BP BP Pulse Ox 09/21/19 14:56 36.8 C 69 18 131/73 97 09/21/19 11:10 36.5 C 69 18 149/78 H 97 09/21/19 07:35 56 L 09/21/19 07:11 36.5 C 58 L 18 175/75 H 95 Laboratory Results 09/21/19 09/21/19 09/21/19 Range/Units 16:28 11:57 07:34 WBC (4.8-10.8) K/uL RBC (4.2-5.4) M/uL Hgb (12.0-16.0) g/dL Hct (37-47) % MCV (80-100) fL MCH (25-34) pg MCHC (32-36) g/dL RDW Std Deviation (36.4-46.3) fL RDW Coeff of Franchesca (11.5-14.5) % Plt Count (130-400) K/uL MPV (7.4-10.4) fL Immature Gran % (Auto) % Neut % (Auto) % Lymph % (Auto) % [place] % (Auto) % Eos % (Auto) % Baso % (Auto) % Immature Gran # (Auto) (0.00-0.02) K/uL Neut # (Auto) (1.4-6.5) K/uL Lymph # (Auto) (1.2-3.4) K/uL [place] # (Auto) (0.11-0.59) K/uL Eos # (Auto) (0-0.5) K/uL Baso # (Auto) (0-0.2) K/uL Sodium (136-145) mmol/L Potassium (3.5-5.1) mmol/L Chloride (98-107) mmol/L Carbon Dioxide (21-32) mmol/L Anion Gap (3-11) BUN (7-18) mg/dl Creatinine (0.6-1.2) mg/dl Est Cr Clr Drug Dosing ml/min Est GFR ( Amer) Est GFR (Non-Af Amer) BUN/Creatinine Ratio (10-20) Glucose (70-99) mg/dl POC Glucose 167 H 161 H 116 H (70-99) mg/dl Calcium (8.5-10.1) mg/dl Total Bilirubin (0.2-1) mg/dl AST (15-37) U/L ALT (12-78) U/L Alkaline Phosphatase (45-117) U/L Total Protein (6.4-8.2) gm/dl Albumin (3.4-5.0) gm/dl Globulin (2.5-4.0) gm/dl Albumin/Globulin Ratio (0.9-2) 09/21/19 09/21/19 09/20/19 Range/Units 06:00 06:00 20:20 WBC 6.52 (4.8-10.8) K/uL RBC 3.49 L (4.2-5.4) M/uL Hgb 10.9 L (12.0-16.0) g/dL Hct 34.1 L (37-47) % MCV 97.7 (80-100) fL MCH 31.2 (25-34) pg MCHC 32.0 (32-36) g/dL RDW Std Deviation 50.1 H (36.4-46.3) fL RDW Coeff of Franchesca 14.1 (11.5-14.5) % Plt Count 199 (130-400) K/uL MPV 9.6 (7.4-10.4) fL Immature Gran % (Auto) 0.2 % Neut % (Auto) 75.2 % Lymph % (Auto) 10.0 % [place] % (Auto) 10.3 % Eos % (Auto) 4.0 % Baso % (Auto) 0.3 % Immature Gran # (Auto) 0.01 (0.00-0.02) K/uL Neut # (Auto) 4.91 (1.4-6.5) K/uL Lymph # (Auto) 0.65 L (1.2-3.4) K/uL [place] # (Auto) 0.67 H (0.11-0.59) K/uL Eos # (Auto) 0.26 (0-0.5) K/uL Baso # (Auto) 0.02 (0-0.2) K/uL Sodium 138 (136-145) mmol/L Potassium 4.2 (3.5-5.1) mmol/L Chloride 104 (98-107) mmol/L Carbon Dioxide 29 (21-32) mmol/L Anion Gap 5.0 (3-11) BUN 35 H (7-18) mg/dl Creatinine 0.66 (0.6-1.2) mg/dl Est Cr Clr Drug Dosing 48.4 ml/min Est GFR ( Amer) 92.7 Est GFR (Non-Af Amer) 80.0 BUN/Creatinine Ratio 52.9 H (10-20) Glucose 123 H (70-99) mg/dl POC Glucose 166 H (70-99) mg/dl Calcium 9.7 (8.5-10.1) mg/dl Total Bilirubin 0.4 (0.2-1) mg/dl AST 17 (15-37) U/L ALT 12 (12-78) U/L Alkaline Phosphatase 47 (45-117) U/L Total Protein 6.5 (6.4-8.2) gm/dl Albumin 3.2 L (3.4-5.0) gm/dl Globulin 3.3 (2.5-4.0) gm/dl Albumin/Globulin Ratio 1.0 (0.9-2) Diagnostic Findings CT head- No stroke, with atrophy of the brain and microvascular ischemic changes PG Care Time/CCT Total # of Minutes Spent Total Time Spent with Patient: Total time spent is greater than 50% in coordination of care (as documented) at patient's floor/unit and/or counseling patient: Coding Level of Care Code 38031 Subseq Hosp Care Lvl 3 Diagnoses Fall W19.XXXA Encounter type: initial encounter Acute electrocardiogram changes R94.31 Fracture, ribs S22.42XA Encounter type: initial encounter Fracture type: closed Laterality: left Rib fracture type: multiple ribs Fracture of thoracic transverse process S22.009A Aortic stenosis I35.0 Sinus bradycardia R00.[address] Z93.3 Diabetes E11.9 Diabetes mellitus complication status: without complication Diabetes mellitus assisted insulin use: without medical terminologist use Diabetes mellitus type: type 2 Hypothyroidism E03.9 Hypothyroidism type: unspecified Osteoporosis M81.0 HTN (hypertension) I10 DVT prophylaxis Z29.9 (1) Fracture, ribs Encounter type: initial encounter Fracture type: closed Laterality: left Rib fracture type: multiple ribs Qualified Code(s): S22.42XA - Multiple fractures of ribs, left side, initial encounter for closed fracture (2) Diabetes Diabetes mellitus complication status: without complication Diabetes mellitus assisted insulin use: without medical terminologist use Diabetes mellitus type: type 2 Qualified Code(s): E11.9 - Type 2 diabetes mellitus without complications (3) Hypothyroidism Hypothyroidism type: unspecified Qualified Code(s): E03.9 - Hypothyroidism, unspecified (4) Fall Encounter type: initial encounter Qualified Code(s): W19.XXXA - Unspecified fall, initial encounter
[2019-09-21] MEDS: TAPENTADOL HCL 50 MG TAB PO PRN (19:48)
[2019-09-21] MEDS: POLYETHYLENE (MIRALAX) 17 GM PACK PO SCH (20:32)
[2019-09-22] MEDS: TAPENTADOL HCL 50 MG TAB PO PRN ×4 (01:08→21:03)
[2019-09-22] MEDS: LEVOTHYROXINE SODIUM 75 MCG TABLET PO SCH (05:54)
[2019-09-22 06:31] LABS: Basophils # (auto) 0.02 K/uL (0-0.2); Basophils % (auto) 0.3 %; Eosinophils # (auto) 0.28 K/uL (0-0.5); Eosinophils % (auto) 4.2 %; Hematocrit (blood only) 35.9 % (37-47); Hemoglobin 11.3 g/dL (12.0-16.0); Immature Granulocytes # (auto) 0.01 K/uL (0.00-0.02); Immature Granulocytes % (auto) 0.1 %; Lymphocytes # (auto) 0.87 K/uL (1.2-3.4); Lymphocytes % (auto) 12.9 %; Mean Corpuscular Hemoglobin 30.8 pg (25-34); Mean Corpuscular Hgb Conc 31.5 g/dL (32-36); Mean Corpuscular Volume 97.8 fL (80-100); Monocytes # (auto) 0.79 K/uL (0.11-0.59); Monocytes % (auto) 11.7 %; Neutrophils # (auto) 4.77 K/uL (1.4-6.5); Neutrophils % (auto) 70.8 %; Platelet Count 216 K/uL (130-400); RDW Coefficient of Variation 14.1 % (11.5-14.5); RDW Standard Deviation 50.3 fL (36.4-46.3); Red Blood Count 3.67 M/uL (4.2-5.4); White Blood Count 6.74 K/uL (4.8-10.8)
[2019-09-22 06:52] LABS: BUN Creatinine Ratio 41.5 (10-20); Calcium 9.5 mg/dl (8.5-10.1); Creatinine Clr Calc Pharmacy 38.5 ml/min; Est GFR (Non-African American) 63.9; Potassium 4.1 mmol/L (3.5-5.1)
[2019-09-22 07:03] LABS: Ferritin 85.8 ng/ml (8-388); Thyroid Stimulating Hormone 5.38 uIu/ml (0.300-4.500)
[2019-09-22 07:07] LABS: Estimated Average Glucose 160 mg/dl; Hemoglobin A1C 7.2 % (4.5-5.6)
[2019-09-22 07:15] LABS: T4 Free Thyroxine 1.41 ng/dl (0.8-1.6)
[2019-09-22] MEDS: MoRPHine SULFATE 10 MG/ML CARP/VIAL IV PRN ×2 (09:07→17:08)
[2019-09-22] MEDS: ASPIRIN 81 MG ECTAB PO SCH (09:10)
[2019-09-22] MEDS: POLYETHYLENE (MIRALAX) 17 GM PACK PO SCH ×2 (09:10→20:52)
[2019-09-22] MEDS: MIRABEGRON ER 25 MG TAB PO SCH (09:11)
[2019-09-22] MEDS: ENOXAPARIN INJ 30 MG/0.3 ML SYR SQ SCH (09:11)
[2019-09-22] MEDS: DOCUSATE SODIUM/SENNA 50/8.6MG TAB PO SCH (09:12)
[2019-09-22] MEDS: LIDOCAINE 5% 1 PATCH TD SCH (09:14)
[2019-09-22] MEDS: INSULIN ASPART 100 UNITS/ML 3 ML PEN SC SCH ×4 (09:17→20:52)
--- NOTE | 2019-09-22 14:13 | Hospitalist Progress Note ---
Date of Service September 22, 2019 Assessment & Plan (1) Fall: This patient is an 84 yo female here with mechanical fall versus fall from orthostasis found to have ECG changes, with left sided rib fractures and Left transverse process fractures acute -Daughter reported almost overnight change in ambulatory function approximately 2 weeks ago She does have a history of significant scoliosis which could be contributing Fall seems possibly orthostatic in nature-appreciate cardiology consultation-see below for management -PT/OT evaluations appreciated-recommend rehab placement -continue pain control for fractures as below (2) Acute electrocardiogram changes: ECG with allegra-lateral TWIs, repeat ECG improved TWIs but still present. ECG on repeat appears similar Patient has never had any chest pains or shortness of breath. Trop neg x 2 ECHO reviewed, normal EF, no WMAs, elevated RVSP, mild-mod Does have persistent sinus bradycardia-cardiology feels that perhaps she was not able to chronotropically compensate for a lower blood pressure given her bradycardia. -Cardiology recommends discontinuing her lisinopril and following blood pressures-they are currently elevated likely secondary to pain today but are not typically elevated -Follow on telemetry-no arrhythmias so far -No further evaluation for ischemia needed as per cardiology -CT of the head negative for stroke-performed given change in ambulatory function 2 weeks ago, plus cardiology noted that the ECG changes could be consistent with a stroke (3) Fracture, ribs: -Left eighth through 11th ribs fractured secondary to fall -daughter reports that Nucynta has worked well for her in the past-still requiring IV morphine and pain not well controlled -Consult pain management-discussed doing nerve block which would only last 6 to 8 hours versus an epidural which would require her to stay in the hospital a lot longer - continue Nucynta 50 mg p.o. every 6 hours as needed for pain and Pain Man added Nucynta ER 50 bid -Consider Butrans patch versus fentanyl patch as per pain management if the above plan does not work -Continue acetaminophen as needed -IV morphine as needed for severe pain -Bowel regimen with senna/docusate and increase MiraLAX to 17 g twice daily -Continue incentive spirometry every hour while awake (4) Fracture of thoracic transverse process: Likely Osteoporotic left thoracic T9 and T10 transverse process fractures in elderly female Secondary to fall Seen by orthopedic spine surgery-pain control, no bracing or surgery needed Physical therapy (5) Aortic stenosis: Mild to moderate on echocardiogram Did not contribute to her fall -Follow as an outpatient (6) Sinus bradycardia: As noted above, persistent sinus bradycardia in the 50s-60s No indication for pacemaker at this time (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 twice daily and cont senna/docusate (8) Diabetes: Blood sugars well controlled here -hemoglobin A1c 7.2% -Continue loose sliding scale insulin -She is on no medications at home (9) Hypothyroidism: TSH mildly elevated at 5.3, normal free T4 Given history of falls and ambulatory dysfunction, checked TSH -follow-up as an outpatient -Continue home levothyroxine dose (10) Osteoporosis: Has been on Forteo and follows with endocrinology With osteoporotic fractures as above and also a history of compression fractures -Continue Forteo upon discharge Vitamin D level was excellent at 47 in 10/2018 (11) HTN (hypertension): Blood pressures normally well controlled and only on minimal dosing of lisinopril which has been held as above Blood pressure is elevated today likely secondary to pain -Continue to follow blood pressures and could restart lisinopril if continue to be elevated (12) DVT prophylaxis: Lovenox SQ Disposition-likely stable for discharge to rehab if accepted and approved tomorrow at [facility] if pain is improved Admission and Anticipated Discharge Date Admission Date: September 20, 2019 Anticipated date of discharge: 09/23/19 Subjective Patient having significant pain with minimal movement in the left-sided ribs, required morphine and several doses of Nucynta today. Still no bowel movement except minimal stool today in her colostomy. She is eating and drinking. Denies chest pain or shortness of breath. I discussed the case with pain management Telemetry with normal sinus rhythm and sinus bradycardia with rates in the 50s to 70s Review of Systems Review of Systems: All systems reviewed & are unremarkable except as noted in HPI & below Physical Exam Constitutional: WD/WN, vitals as above + acute distress (In pain with minimal movement) Eyes: + anicteric sclerae Neck: trachea midline, no thyromegaly Respiratory: normal respiratory effort, lungs clear to auscultation Cardiovascular: RRR, no murmur, no edema Rate/Rhythm: regular rhythm and + bradycardic Heart Sounds: + murmur (3/6 MOA at the RUSB) Extremities: no edema Chest (Breasts): Chest: normal inspection of chest (With positive tenderness to palpation over left posterior lateral ribs, no bruising) Gastrointestinal (Abdomen): normal bowel sounds, soft, nontender, no hepatosplenomegaly (With colostomy bag in place with small amount of stool and minimal gas) Musculoskeletal: Extremities: extremities normal to inspection; no cyanosis and no clubbing Skin: no rashes, warm and dry Neurologic: moves all extremities and awake; no focal motor deficits Psychiatric: Orientation: alert, oriented to person, oriented to place and cooperative Affect: + blunted affect Lymphatic: no lymphedema Results & Data Results & Data ([facility]) Vital Signs (Past 12 Hours) Vital Signs Temp Pulse Pulse Resp BP BP Pulse Ox 09/22/19 11:34 36.7 C 61 18 143/76 H 94 09/22/19 07:49 59 L 09/22/19 07:00 36.3 C L 59 L 16 163/79 H 93 09/22/19 04:40 36.7 C 64 19 146/77 H 93 Laboratory Results Labs reviewed PG Care Time/CCT Total # of Minutes Spent Total Time Spent with Patient: Total time spent is greater than 50% in coordination of care (as documented) at patient's floor/unit and/or counseling patient: Coding Level of Care Code 74261 Subseq Hosp Care Lvl 3 Diagnoses Fall W19.XXXA Encounter type: initial encounter Acute electrocardiogram changes R94.31 Fracture, ribs S22.42XA Encounter type: initial encounter Fracture type: closed Laterality: left Rib fracture type: multiple ribs Fracture of thoracic transverse process S22.009A Aortic stenosis I35.0 Sinus bradycardia R00.[address] Z93.3 Diabetes E11.9 Diabetes mellitus complication status: without complication Diabetes mellitus oysterman insulin use: without oysterman use Diabetes mellitus type: type 2 Hypothyroidism E03.9 Hypothyroidism type: unspecified Osteoporosis M81.0 HTN (hypertension) I10 DVT prophylaxis Z29.9 (1) Fracture, ribs Encounter type: initial encounter Fracture type: closed Laterality: left Rib fracture type: multiple ribs Qualified Code(s): S22.42XA - Multiple fractures of ribs, left side, initial encounter for closed fracture (2) Diabetes Diabetes mellitus complication status: without complication Diabetes mellitus oysterman insulin use: without snf use Diabetes mellitus type: type 2 Qualified Code(s): E11.9 - Type 2 diabetes mellitus without complications (3) Hypothyroidism Hypothyroidism type: unspecified Qualified Code(s): E03.9 - Hypothyroidism, unspecified (4) Fall Encounter type: initial encounter Qualified Code(s): W19.XXXA - Unspecified fall, initial encounter
--- NOTE | 2019-09-22 14:16 | Cardiology Progress Note ---
Date of Service September 22, 2019 Assessment & Plan (1) Acute electrocardiogram changes: Would accept her stable anterior T wave inversions on ECG as her "new normal" baseline, and, in the absence of any new symptoms, would not pursue further work-up at this time. (2) Fall: No evidence of heart block or symptomatic bradycardia as a cause for potential syncopal fall. Given history of orthostatic type symptoms, would continue to have her remain off vasoactive medications and allow for minor hypertension (in the context of pain). If necessary, antihypertensive could be started as an outpatient. (3) Aortic stenosis: Mild to moderate, not hemodynamically significant. (4) Sinus bradycardia: Asymptomatic. (5) HTN (hypertension): Variable BP without persistent hypertension currently. Vasoactive medications held. (6) Fracture, ribs: (7) Fracture of thoracic transverse process: Given clinical stability and no new or ongoing cardiac issues, will sign off. Please contact if her status should change. Thank you. Admission and Anticipated Discharge Date Admission Date: September 20, 2019 Anticipated date of discharge: 09/22/19 Subjective Uneventful night. No change in back or left rib pain secondary to fractures, but she seems more fatigued. No anginal type symptoms. No subjective palpitations, presyncope, or syncope. No orthostatic symptoms. Rhythm was sinus bradycardia and sinus rhythm with rate in the 50s and 60s. No profound bradycardia or pauses. BP normotensive to mildly hypertensive systolic readings, normal diastolic readings. Her only new complaint is decreased colostomy output (possibly secondary to her narcotic analgesics). No abdominal pain or significant distention. Physical Exam Physical Exam: Elderly white female who appears mildly uncomfortable (sedated for thoracic compression fracture), but answers questions appropriately and is not in acute distress. Skin: no ecchymoses or generalized lesions. HEENT: unremarkable. Neck: Jugular venous pulse normal to mildly reduced, bilateral transmitted murmur versus carotid bruits. Lungs clear. Cardiac: regular rhythm with 2/6 basal systolic ejection murmur rating to the carotids and left sternal border (louder at the apex), no diastolic murmur or gallop. Moderately reduced but audible aortic closure sound, increased pulmonic closure sound. Abdomen: Colostomy bag present left periumbilical region, abdomen soft and nontender. Extremities: no edema, pulses brisk. Neurologic: Speech slightly slurred (likely secondary to narcotic analgesics), normal affect, nonfocal. Results & Data ([facility]) Vital Signs (Past 12 Hours) Vital Signs Temp Pulse Pulse Resp BP BP Pulse Ox 09/22/19 11:34 98.1 F 61 18 143/76 H 94 09/22/19 07:49 59 L 09/22/19 07:00 97.3 F L 59 L 16 163/79 H 93 09/22/19 04:40 98.1 F 64 19 146/77 H 93 Diagnostic Findings ECG not performed today. PG Care Time/CCT Total # of Minutes Spent Total Time Spent with Patient: Total time spent is greater than 50% in coordination of care (as documented) at patient's floor/unit and/or counseling patient: Coding Level of Care Code 43584 Subseq Hosp Care Lvl 2 Diagnoses Acute electrocardiogram changes R94.31 Fall W19.XXXA Encounter type: initial encounter Aortic stenosis I35.0 Sinus bradycardia R00.1 HTN (hypertension) I10 Fracture, ribs S22.42XA Encounter type: initial encounter Fracture type: closed Laterality: left Rib fracture type: multiple ribs Fracture of thoracic transverse process S22.009A (1) Fall Encounter type: initial encounter Qualified Code(s): W19.XXXA - Unspecified fall, initial encounter (2) Fracture, ribs Encounter type: initial encounter Fracture type: closed Laterality: left Ri b fracture type: multiple ribs Qualified Code(s): S22.42XA - Multiple fractures of ribs, left side, initial encounter for closed fracture
--- NOTE | 2019-09-22 18:51 | Pain Management Consultation ---
Date of Consultation September 22, 2019 Assessment & Plan (1) Fracture, ribs: 1. Recommend Nucynta ER 50 mg p.o. every 12 with Nucynta IR 50 mg p.o. every 6 as needed pain. Hopefully this will provide her with some basal pain relief and limited side effects. If this fails consider utilization of Butrans patch versus fentanyl patch. Would prefer Butrans over fentanyl for decreased side effect profile, but would work within insurance constraints for medication choice. Orders are written. 2. Recommend utilization of Miacalcin nasal spray to decrease pain. 3. Recommend continued utilization of Lidoderm patch. 4. Could consider thoracic epidural versus single shot intercostal nerve block. After discussion with Dr. Bosch, will attempt for conservative management initially. 5. Recommend outpatient follow-up with pain management office for further care, will continue to during this hospitalization. 6. Thank you for this consultation. Encounter type: initial encounter Fracture type: closed Laterality: left Rib fracture type: multiple ribs Qualified Code(s): S22.42XA - Multiple fractures of ribs, left side, initial encounter for closed fracture (2) Fracture of thoracic transverse process: (3) Chronic kidney disease, stage III (moderate): (4) Osteoporosis: History of Present Illness Attending Physician: Mari Bosch MD History of Present Illness 84-year-old female who fell on her way to the restroom on 09/18 sustaining left- sided 8 through 11th rib fractures and left-sided T9 and T10 transverse process fractures. In addition she has a history of old compression fractures over T5, 8, 11, 12, L1 fractures and significant scoliosis. Per hospitalist note her daughter reported utilization of Nucynta with good effect in the past. On examination today the patient states that pain is 7-9 out of 10 with movement and 4 out of 10 at rest. Per nursing she has not been able to move to the chair secondary to pain. She notes minimal effect with Lidoderm patch and current opiate dosing of immediate release Nucynta 50 mg x 4 doses and morphine 2 mg IV x2 doses in the last 24 hours. Pain is sharp stabbing shooting from T6 to approximately T11 left-sided only worst over the posterior thorax with some radiation to the mid axillary line. She denies any bowel or bladder inco ntinence, motor weakness, footdrop at this time. She does have a colostomy and per nursing she has had minimal output today but bowel regimen was recently initiated. Per her hospitalist Nucynta dosing has led to mild sedation but no other noted side effects. Pain Assessment Full Body Front + Back: 1. 2. [facility] Combined Pain Scale: 7-Severe - Pain prevents productive activity. Impossible to tolerate. Allergies Allergy/AdvReac Type Severity Reaction Status Date / Time No Known Drug Allergies Allergy Unknown Verified 09/20/19 03:31 Home Medications Home Medications Medication Instructions Recorded Confirmed Type Caltrate 600 plus D 1 tab PO BID 01/24/18 09/20/19 History Centrum Silver Women 1 tab PO DAILY 01/24/18 09/20/19 History ascorbic acid (vitamin C) [Vitamin 500 mg PO DAILY 01/24/18 09/20/19 History C] cranberry extract 250 mg PO DAILY 01/24/18 09/20/19 History levothyroxine 75 mcg PO DAILY 01/24/18 09/20/19 History lisinopril 2.5 mg PO DAILY 01/24/18 09/20/19 History polyethylene glycol 3350 [Miralax] 8.5 g PO BID 01/24/18 09/20/19 History vitamin E 200 unit PO DAILY 01/24/18 09/20/19 History teriparatide 20 mcg/dose (600 20 mcg SQ DAILY #2.4 ml 01/20/19 09/20/19 Rx mcg/2.4 mL) subcutaneous pen injector mirabegron 50 mg tablet,extended 50 mg PO DAILY #90 tab 02/23/19 09/20/19 Rx release 24 hr calcitriol 0.25 mcg capsule 0.25 mcg PO DAILY #30 cap 04/28/19 09/20/19 Rx amoxicillin 500 mg tablet 500 mg PO DAILY #90 tab 09/07/19 09/20/19 Rx acetaminophen [Acetaminophen Extra 500 mg PO QPM 09/20/19 09/20/19 History Strength] aspirin 81 mg PO DAILY 09/20/19 09/20/19 History cyanocobalamin (vitamin B-12) 500 mcg PO DAILY 09/20/19 09/20/19 History ferrous gluconate 240 mg PO DAILY 09/20/19 09/20/19 History folic acid 0.8 mg PO DAILY 09/20/19 09/20/19 History metformin 500 mg PO DAILY 09/20/19 09/20/19 History Patient History Medical History (Updated 09/21/19 @ 19:41 by Mari Bosch MD) Chronic kidney disease, stage III (moderate) (Chronic) Closed fracture of ankle (Inactive ~2011) "S/P ORIF " Degenerative scoliosis (Inactive) Feeling of incomplete bladder emptying (Inactive) Frequent UTI (Inactive) Gross hematuria (Inactive 03/2019) Hyponatremia (2018) Impacted cerumen of both ears Neurogenic bladder (Inactive) Non-traumatic compression fracture of T8 thoracic vertebra (Inactive 2018) Osteoporosis Rectal prolapse (Inactive) Rib fractures (Inactive 2018) Sepsis (Acute 2013) Urinary incontinence (Inactive) Surgical History Colostomy in place (Chronic) History of left knee replacement (Inactive) Family History No significant past medical history Social History Preferred Language: Frisian Communication Ability: Effective Manager Environmental Affairs Required: No Beliefs That Will Affect Care: None marital status: / Current Living Situation: Family Other Information That Helps Us Care for You: No Feels Safe at Home: Yes Safety Concerns: Feels Safe At This Time Smoking Status: Never smoker Second Hand Exposure: No ; Hx Alcohol Use: No Hx Substance Use: No Physical Exam Physical Exam: Constitutional: Thin frail and deconditioned Psych: Awake, alert, and oriented 3 with normal affect and mood. Recent memory appears grossly intact Eyes: Pupils are equally round and reactive to light with normal size pupils, eyelids appear normal Ear, nose, mouth, and throat: Moist nasal and oral membranes, lips and tongues appear normal, no external ear abnormalities are noted Neck: The trachea is midline without deviation and no thyromegaly is noted Respiratory: Normal respiratory effort, mild to moderate distress secondary to pain on deep inspiration and coughing, no audible wheezes or rhonchi CV: Normal S1 and S Chest: Deferred GI/abdomen: Non-tender without guarding, colostomy is noted in the left lower quadrant Musculoskeletal: Head is normocephalic and atraumatic, gait not observed and has difficulty logrolling. Cervical: Lordotic curve: Normal Range of motion is normal with extension, flexion, side-bending, rotation Strength: Strength is equal bilaterally with 5 out of 5 strength in all planes Thoracic: Kyphotic curve: Increased kyphosis Range of motion is decreased in all planes secondary to pain Tenderness: Exquisitely tender over the axial midline left-sided only from approximately T6-11 with radiation laterally Facet provocation: Difficult to assess secondary to pain Scoliosis present: Yes Step-off injuries: None appreciated Myofascial spasm: Mild appreciable spasm over thoracolumbar paravertebral spinous musculature left greater than right. No discrete trigger points noted Lumbar: Lordotic curve: Near complete loss of lumbar lordosis Range of motion is decreased in all planes Tenderness: Mild to moderately tender over the axial midline Straight leg raise: Negative bilaterally Step-off injuries: None Strength: Strength is equal bilaterally with 5 out of 5 strength in all planes Sensation of lower extremities: Intact bilaterally Deep tendon reflexes: Rated at 1+ in bilateral L4 and S1 Myofascial spasm: Minimal appreciable spasm. No discrete trigger points noted Greater trochanters: Nontender bilaterally Sacroiliac joints: Nontender bilaterally Pathologic reflexes noted: None Skin: No rashes, lesions, ulcers, or induration noted Neuro: No nystagmus noted, the tongue is midline, the patient is able to rotate their head bilaterally : Deferred Results Diagnostic Review CT Findings: 09/20/19 CT OF THE THORACIC SPINE CLINICAL HISTORY: fall - left sided trauma COMPARISON STUDY: Chest CT January 19, 2018. Thoracic spine radiographs August 17, 2018. TECHNIQUE: Helical axial images of the thoracic spine were obtained. Sagittal and coronal reconstructions were viewed. Automated exposure control was utilized for the study. A dose lowering technique was utilized adhering to the principles of ALARA. FINDINGS: Note is made of severe compression fractures of T5, T8 T11, T12 and L1. The T5 fracture is new since CT of January 19, 2018 however is sclerotic. This fracture is likely chronic. The remainder of the compression fractures were present on prior exam and are chronic. There is mild retropulsion at several levels. Note is made of acute appearing nondisplaced fractures of the left transverse processes of T9 and T10. Note is made of multiple old bilateral rib fractures. In addition, there are acute fractures of the posterolateral left eighth through 11th ribs. These are nondisplaced. No pneumothorax is shown within visualized portions of the chest. There is biapical scarring. Subpleural opacities reflect atelectasis. Large hiatal hernia is present. IMPRESSION: 1. Acute appearing nondisplaced fractures of the left transverse processes of T9 and T10. 2. Numerous old thoracic spine compression fractures, as described above. 3. Acute nondisplaced fractures of the left eighth through 11th ribs. No pneumothorax. 09/20/19 CT lumbar spine wo con CT DOSE: CLINICAL HISTORY: Back pain status post trauma TECHNIQUE: Helical images were acquired in transverse plane. Reformatted sagittal and coronal images were reviewed. A dose lowering technique was utilized adhering to the principles of ALARA. CONTRAST: No contrast was administered COMPARISON STUDY: MRI dated 07/12/2011 FINDINGS: L1-2 level: There is no evidence of significant disc bulge or focal herniation. There is no evidence of spinal or foraminal stenosis. L2-3 level: There is marked disc desiccation. There is mild posterior osteophytic spurring. There is moderate spinal canal narrowing. There is no significant foraminal stenosis L3-4 level: There is marked disc degeneration. There is minor spinal canal narrowing. There is facet joint arthropathy. There is mild left-sided foraminal narrowing L4-5 level: Diffuse circumferential disc bulge. There is disc degeneration. There is minor spinal canal narrowing. There is moderate left-sided foraminal narrowing. L5-S1 level: There is circumferential disc bulge. There is mild to moderate spin al canal narrowing. There is left greater than right foraminal narrowing. The bones are osteopenic. There is an old moderate to severe L1 compression fracture. There is an inferior endplate T12 compression deformity. No acute fractures or traumatic subluxations are visualized. Opioid Risk Assessment Opioid Risk Assessment: risk assessment performed and no issues identified
[2019-09-22] MEDS: TAPENTADOL HCL ER 50 MG TABCR PO SCH (20:52)
[2019-09-23] MEDS: MoRPHine SULFATE 10 MG/ML CARP/VIAL IV PRN ×3 (01:32→18:01)
[2019-09-23] MEDS: LEVOTHYROXINE SODIUM 75 MCG TABLET PO SCH (06:22)
[2019-09-23] MEDS: DOCUSATE SODIUM/SENNA 50/8.6MG TAB PO SCH (07:41)
[2019-09-23] MEDS: MIRABEGRON ER 25 MG TAB PO SCH (07:41)
[2019-09-23] MEDS: ASPIRIN 81 MG ECTAB PO SCH (07:41)
[2019-09-23] MEDS: POLYETHYLENE (MIRALAX) 17 GM PACK PO SCH ×2 (07:41→20:44)
[2019-09-23] MEDS: LIDOCAINE 5% 1 PATCH TD SCH (07:41)
[2019-09-23] MEDS: CALCITONIN SALMON NA 200 IU/AC 3.7 ML BTL SCH (07:42)
[2019-09-23] MEDS: TAPENTADOL HCL ER 50 MG TABCR PO SCH ×2 (07:46→20:44)
[2019-09-23] MEDS: INSULIN ASPART 100 UNITS/ML 3 ML PEN SC SCH ×4 (08:27→20:45)
[2019-09-23] MEDS: ENOXAPARIN INJ 30 MG/0.3 ML SYR SQ SCH (09:41)
--- NOTE | 2019-09-23 09:53 | Pain Management Progress Note ---
Date of Service September 23, 2019 Assessment & Plan (1) Fracture, ribs: Continue current regimen: Nucynta 50mg ER BID, Nucynta 50mg IR x 4 hours PRN, Lidocaine patches, and PRN IV Morphine. She has only taken the first dose of Nucynta ER just prior to seeing the patient to we cannot determine efficacy yet. Plan to treat conservatively with medications rather than interventional procedures for now. If pain is not well controlled with current regimen, may consider increasing Nucynta IR to 75mg x 4 hours. Thank you for the consultation. Please call with any questions or concerns. Encounter type: initial encounter Fracture type: closed Laterality: left Rib fracture type: multiple ribs Qualified Code(s): S22.42XA - Multiple fractures of ribs, left side, initial encounter for closed fracture (2) Fracture of thoracic transverse process: Subjective Mrs. Gonzales is an 84 year old white female that sustained a fall which resulted in a left 8-11 rib fracture and T9, T10 transverse process fracture. This morning she was initiated on Nucynta 50mg ER BID in addition to the Nucynta 50mg IR x 4 hours. First Extended release dose was given about 15 minutes prior to visiting the patient. She has not taken a Nucynta IR since last evening. The majority of her pain is located in the left lower ribs. She describes a sharp stabbing pain that is worse with any movement. She has been using incentive spirometry multiple times a day. Lidocaine patch is mildly efficacious for the pain. She has used Morphine 6mg IV over the past 24 hours. Patient does report 8/10 pain currently. She finds that making frequent positional changes does provide mild pain relief. Patient denies any back pain. Pain Assessment Pain Assessment Full Body Front + Back: 1. [facility] Combined Pain Scale: 8-Debilitating - Impairs activity. Can't maintain a conversation. Physical Exam Physical Exam: GENERAL: This is an 84 year old white female that appears her stated age. She is in pain during our discussion. HEAD/FACE: Normocephalic and atraumatic. EYES: No drainage or conjunctival injection. ENT: Nose without bleeding or discharge. Oral mucosa slightly dry. NECK: Full ROM without apparent pain. RESPIRATORY: Patient with unlabored breathing. No signs of respiratory distress. CHEST/AXILLA: Chest movement symmetrical. No deformities noted. There is tender ness along the left lower ribs without any step offs noted. ABDOMEN/GI: No distension BACK: Moves without difficulty. No tenderness to palpation. SKIN: [place], warm and dry. No rash noted. MS/EXTREMITY: Moving extremities appropriately. NEURO: Alert and appears oriented. Speech is fluent. Cranial Nerves are grossly intact.
--- NOTE | 2019-09-23 14:09 | Hospitalist Progress Note ---
Date of Service September 23, 2019 Assessment & Plan (1) Fall: This patient is an 84 yo female here with mechanical fall versus fall from orthostasis found to have ECG changes, with left sided rib fractures and Left transverse process fractures acute -Daughter reported almost overnight change in ambulatory function approximately 2 weeks ago She does have a history of significant scoliosis which could be contributing Fall seems possibly orthostatic in nature-appreciate cardiology consultation-see below for management -PT/OT evaluations appreciated-recommend rehab placement -continue pain control for fractures as below (2) Acute electrocardiogram changes: ECG with allegra-lateral TWIs, repeat ECG improved TWIs but still present. ECG on repeat appears similar Patient has never had any chest pains or shortness of breath. Trop neg x 2 ECHO reviewed, normal EF, no WMAs, elevated RVSP, mild-mod Does have persistent sinus bradycardia-cardiology feels that perhaps she was not able to chronotropically compensate for a lower blood pressure given her bradycardia. -Cardiology recommends discontinuing her lisinopril and following blood pressures-they are currently elevated likely secondary to pain but are not typically elevated -Followed on telemetry-no arrhythmias so far--> ok to discontinue tele especially as the weight of the box on her chest is making her feel uncomfortable -No further evaluation for ischemia needed as per cardiology -CT of the head negative for stroke-performed given change in ambulatory function 2 weeks ago, plus cardiology noted that the ECG changes could be consistent with a stroke (3) Fracture, ribs: -Left eighth through 11th ribs fractured secondary to fall -daughter reports that Nucynta has worked well for her in the past-still requiring IV morphine and pain not well controlled today but just started on long acting ER Nucynta this AM -Consult pain management appreciated-discussed doing nerve block which would only last 6 to 8 hours versus an epidural which would require her to stay in the hospital a lot longer-defer for conservative management for now - continue Nucynta 50 mg p.o. every 6 hours as needed for breakthrough pain-can increase to 74mg q4h if needed as per Pain Man -continue Nucynta ER 50 bid -Consider Butrans patch versus fentanyl patch as per pain management if the above plan does not work -Continue acetaminophen as needed -IV morphine as needed for severe pain -Bowel regimen with senna/docusate and increased MiraLAX to 17 g twice daily--> will give one time dose of MOM today -Continue incentive spirometry every hour while awake -OOB to chair and with PT/OT (4) Fracture of thoracic transverse process: Likely Osteoporotic left thoracic T9 and T10 transverse process fractures in elderly female Secondary to fall Seen by orthopedic spine surgery-pain control, no bracing or surgery needed Not causing her pain Physical therapy (5) Aortic stenosis: Mild to moderate on echocardiogram Did not contribute to her fall -Follow as an outpatient (6) Sinus bradycardia: As noted above, persistent sinus bradycardia in the 50s-60s which is now improved to the 60-80s No indication for pacemaker at this time -ok to remove from tele (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 twice daily and cont senna/docusate -give MOM today follow (8) Diabetes: Blood sugars well controlled here -hemoglobin A1c 7.2% -Continue loose sliding scale insulin -She is on no medications at home (9) Hypothyroidism: TSH mildly elevated at 5.3, normal free T4 Given history of falls and ambulatory dysfunction, checked TSH -follow-up as an outpatient -Continue home levothyroxine dose (10) Osteoporosis: Has been on Forteo and follows with endocrinology With osteoporotic fractures as above and also a history of compression fractures -Continue Forteo upon discharge Vitamin D level was excellent at 47 in 10/2018 -restart home Caltrate, Calcitriol -started Calcitonin nasal spray as per Pain Man for bony pain (11) HTN (hypertension): Blood pressures normally well controlled and only on minimal dosing of lisinopril which has been held as above Blood pressure is elevated here likely secondary to pain although now improving with better pain control -Continue to follow blood pressures and could restart lisinopril if continue to be elevated (12) DVT prophylaxis: Lovenox SQ Disposition-likely stable for discharge to rehab tomorrow at [facility] if pain is improved Admission and Anticipated Discharge Date Admission Date: September 20, 2019 Anticipated date of discharge: 09/24/19 Subjective Pt started on ER Nucynta this AM and required IV morphine prior to that. Reports pain this afternoon is slightly better. Is worried about her low output from colostomy still. Is eating and was OOB to chair earlier today. Tele with NSR, PACs, rates 60-80s I spoke withher daughter Bev on the phone at length. Review of Systems Review of Systems: All systems reviewed & are unremarkable except as noted in HPI & below Physical Exam Constitutional: WD/WN, vitals as above no acute distress Eyes: + anicteric sclerae Neck: trachea midline, no thyromegaly Respiratory: normal respiratory effort, lungs clear to auscultation Cardiovascular: Rate/Rhythm: regular rate and regular rhythm Heart Sounds: + murmur (3/6 OMA at the RUSB) Extremities: no edema Gastrointestinal (Abdomen): normal bowel sounds, soft, nontender, no hepatosplenomegaly (With colostomy bag in place with small amount of gas, no stool) Musculoskeletal: Extremities: extremities normal to inspection; no cyanosis and no clubbing Skin: no rashes, warm and dry Neurologic: moves all extremities and awake; no focal motor deficits Psychiatric: Orientation: alert, oriented to person, oriented to place and cooperative Affect: + blunted affect Lymphatic: no lymphedema Results & Data Results & Data ([facility]) Vital Signs (Past 12 Hours) Vital Signs Temp Pulse Pulse Resp BP Pulse Ox 09/23/19 12:00 36.6 C 74 20 121/69 92 09/23/19 08:50 65 09/23/19 07:22 36.7 C 72 20 178/79 H 95 09/23/19 03:38 74 09/23/19 03:24 36.5 C 68 18 168/79 H 93 Laboratory Results 09/23/19 09/23/19 09/22/19 Range/Units 11:54 07:50 20:07 POC Glucose 160 H 133 H 133 H (70-99) mg/dl 09/22/19 Range/Units 16:40 POC Glucose 187 H (70-99) mg/dl PG Care Time/CCT Total # of Minutes Spent Total Time Spent with Patient: Total time spent is greater than 50% in coordination of care (as documented) at patient's floor/unit and/or counseling patient: Coding Level of Care Code 00349 Subseq Hosp Care Lvl 2 Diagnoses Fall W19.XXXA Encounter type: initial encounter Acute electrocardiogram changes R94.31 Fracture, ribs S22.42XA Encounter type: initial encounter Fracture type: closed Laterality: left Rib fracture type: multiple ribs Fracture of thoracic transverse process S22.009A Aortic stenosis I35.0 Sinus bradycardia R00.[address] Z93.3 Diabetes E11.9 Diabetes mellitus complication status: without complication Diabetes mellitus [employer] insulin use: without penitentiary use Diabetes mellitus type: type 2 Hypothyroidism E03.9 Hypothyroidism type: unspecified Osteoporosis M81.0 HTN (hypertension) I10 DVT prophylaxis Z29.9 (1) Fracture, ribs Encounter type: initial encounter Fracture type: closed Laterality: left Rib fracture type: multiple ribs Qualified Code(s): S22.42XA - Multiple fractures of ribs, left side, initial encounter for closed fracture (2) Diabetes Diabetes mellitus complication status: without complication Diabetes mellitus [employer] insulin use: without laborer [employer] use Diabetes mellitus type: type 2 Qualified Code(s): E11.9 - Type 2 diabetes mellitus without complications (3) Hypothyroidism Hypothyroidism type: unspecified Qualified Code(s): E03.9 - Hypothyroidism, unspecified (4) Fall Encounter type: initial encounter Qualified Code(s): W19.XXXA - Unspecified fall, initial encounter
[2019-09-23] MEDS: TAPENTADOL HCL 50 MG TAB PO PRN (15:20)
[2019-09-23] MEDS: CALCIUM 600MG + VIT D 400 IU TAB PO SCH (20:45)
[2019-09-23] MEDS ORDERED: AMOXICILLIN 500 MG CAP PO SCH (21:00)
[2019-09-23] MEDS ORDERED: ACETAMINOPHEN 500 MG TAB PO SCH (21:00)
[2019-09-24] MEDS: MoRPHine SULFATE 10 MG/ML CARP/VIAL IV PRN (05:55)
[2019-09-24] MEDS: LEVOTHYROXINE SODIUM 75 MCG TABLET PO SCH (06:04)
[2019-09-24] MEDS: INSULIN ASPART 100 UNITS/ML 3 ML PEN SC SCH ×2 (08:30→12:33)
[2019-09-24] MEDS: CALCIUM 600MG + VIT D 400 IU TAB PO SCH (08:40)
[2019-09-24] MEDS: ASPIRIN 81 MG ECTAB PO SCH (08:41)
[2019-09-24] MEDS: CALCITONIN SALMON NA 200 IU/AC 3.7 ML BTL SCH (08:42)
[2019-09-24] MEDS: LIDOCAINE 5% 1 PATCH TD SCH (08:42)
[2019-09-24] MEDS: MIRABEGRON ER 25 MG TAB PO SCH (08:43)
[2019-09-24] MEDS: POLYETHYLENE (MIRALAX) 17 GM PACK PO SCH (08:43)
[2019-09-24] MEDS: DOCUSATE SODIUM/SENNA 50/8.6MG TAB PO SCH (08:44)
[2019-09-24] MEDS: ENOXAPARIN INJ 30 MG/0.3 ML SYR SQ SCH (08:45)
--- NOTE | 2019-09-24 08:55 | Pain Management Progress Note ---
Date of Service September 24, 2019 Assessment & Plan (1) Fracture, ribs: * Continue with Nucynta ER 50 mg q12h * Encouraged increased use of Nucynta IR with diminished reliance on IV morphine * Continue with Miralax BID * Continue to reserve interventional treatment, but may consider thoracic CHACE versus intercostal nerve block with persistent/intractable pain * Will sign off on patient at this time. Patient may follow up in outpatient pain clinic as needed Encounter type: initial encounter Fracture type: closed Laterality: left Rib fracture type: multiple ribs Qualified Code(s): S22.42XA - Multiple fractures of ribs, left side, initial encounter for closed fracture Present on Admission?: Yes (2) Fracture of thoracic transverse process: Present on Admission?: Yes (3) Ambulatory dysfunction: * Potential plan for outpatient rehab stay Present on Admission?: Yes Subjective Mrs. Gonzales is an 84 year old white female who sustained a fall which resulted in a left 8-11th rib fractures, T9/T10 transverse process fracture and prior history of multiple vertebral compression fractures. Predominant pain generator is the left lower later/anterior chest wall. She utilized Morphine IV 2 mg at 0555 and is currently moderately sedated. She has used Morphine 6mg IV over the past 24 hours. She was initiated on Nucynta 50mg ER BID over the past 24 hours and hasn't noticed much change in pain control at this time. Patient has only utilized Nucynta 50mg IR x1 over past 24 hours. She describes her pain as achy and occasionally sharp/stabbing aggravated with any movement. She has been using incentive spirometry multiple times a day. Lidocaine patch remains mildly efficacious for the pain. Patient does report 6/10 pain currently while sitting up eating her breakfast. Patient denies any axial back pain. Patient has no further constitutional complaints. Plan of care discussed with Dr. Leon. Physical Exam Physical Exam: General: Patient sitting up eating her breakfast. Moderately sedate due to recent dosing of IV morphine. Patient hard of hearing but communication was effective. All movement slowed and apprehensive. Chest: Tender to palpation over the left lower and lateral chest wall. Tender with A/P and lateral compression.
[2019-09-24] MEDS ORDERED: CYANOCOBALAMIN 500 MCG TABLET (VITAMIN B-12) PO SCH (09:00)
[2019-09-24] MEDS ORDERED: CALCITRIOL 0.25 MCG CAPSULE PO SCH (09:00)
[2019-09-24] MEDS ORDERED: FOLIC ACID 400 MCG TAB PO SCH (09:00)
[2019-09-24] MEDS: TAPENTADOL HCL ER 50 MG TABCR PO SCH (09:00)
--- NOTE | 2019-09-24 12:14 | Discharge Summary ---
Date of Service September 24, 2019 Admission HPI Per Admitting Provider Keila Gonzales fell backwards at 9:30PM 09/18. She had a lot of pain after this and at 1-1:30 daughter Bev Reece brought her to the ER. The daughter was able to help give some of the history. She states shat she did not see her mom fall, but heard her and then came to see her mom on the floor. She did not think that her mom hit her head. She was going from the bedroom to the bathroom and did note there was light in the room and no carpet. Daughter noticed a large lump on her left side of her back. She has never had a prior event like this but pt. has degenerative scoliosis and progressive limitations with mobility over the last couple months. Daughter explains difficulty initiation walking and trouble lifting her feet up. She was using a walker with wheels on it. After the fall she was slowly brought up to a chair and then was able to walk, but had increased pain. Daughter states that she did not see any abnormal movements when she found her mother on the floor. When asking Keila Gonzales about what happened she explained that she lost her balance and fell backward, she did not hit anything on the way down and fell on her spine. She remembers the events prior to falling, the fall and after falling. No recent medication changes, no recent illnesses, no travel. Principal Diagnosis Fall, left-sided rib fractures, left-sided thoracic transverse process fractures, osteoporotic fractures Discharge Exam Constitutional WD/WN, vitals as above no acute distress Eyes + anicteric sclerae Neck trachea midline, no thyromegaly Respiratory normal respiratory effort, lungs clear to auscultation Cardiovascular Rate/Rhythm: regular rate and regular rhythm Heart Sounds: + murmur (3/6 OMA at the RUSB) Extremities: no edema Chest (Breasts) Chest: normal inspection of chest (With positive tenderness to palpation over left posterior lateral ribs, no bruising) Gastrointestinal (Abdomen) normal bowel sounds, soft, nontender, no hepatosplenomegaly (With colostomy bag in place with moderate amount of soft stool) Musculoskeletal Extremities: extremities normal to inspection; no cyanosis and no clubbing Skin no rashes, warm and dry Neurologic moves all extremities and awake; no focal motor deficits Psychiatric Orientation: alert, oriented to person, oriented to place and cooperative Affect: + anxious affect Lymphatic no lymphedema Discharge Data Allergies Allergy/AdvReac Type Severity Reaction Status Date / Time No Known Drug Allergies Allergy Unknown Verified 09/20/19 03:31 Consultations 09/20/19 05:19 ED Decision to Admit Stat 09/20/19 07:38 Consult Cardiology Routine Consult Case Management - Discharge Planning Routine Consult Orthopedic Surgery Routine 09/22/19 07:54 Consult Pain Management Routine Ordered Studies 09/20/19 02:55 CT lumbar spine wo con Urgent CT thoracic spine wo con Urgent 09/21/19 17:03 CT head/brain wo con Routine Hospital Course (1) Fall: This patient is an 84 yo female here with mechanical fall versus fall from orthostasis found to have ECG changes, with left sided rib fractures and Left transverse process fractures acute -Daughter reported almost overnight change in ambulatory function approximately 2 weeks ago She does have a history of significant scoliosis which could be contributing Fall seems possibly orthostatic in nature-appreciate cardiology consultation-see below for management -PT/OT evaluations appreciated-recommend rehab placement -continue pain control for fractures as below (2) Acute electrocardiogram changes: ECG with allegra-lateral TWIs, repeat ECG improved TWIs but still present. ECG on repeat appears similar Patient has never had any chest pains or shortness of breath. Trop neg x 2 ECHO reviewed, normal EF, no WMAs, elevated RVSP, mild-mod Does have persistent sinus bradycardia-cardiology feels that perhaps she was not able to chronotropically compensate for a lower blood pressure given her bradycardia. -Cardiology recommends discontinuing her lisinopril and following blood pressures-they are currently elevated likely secondary to pain but are not typically elevated -Followed on telemetry-no arrhythmias so far--> ok to discontinue tele especially as the weight of the box on her chest is making her feel uncomfortable -No further evaluation for ischemia needed as per cardiology -CT of the head negative for stroke-performed given change in ambulatory function 2 weeks ago, plus cardiology noted that the ECG changes could be consistent with a stroke (3) Fracture, ribs: -Left eighth through 11th ribs fractured secondary to fall -Consult pain management appreciated-discussed doing nerve block which would only last 6 to 8 hours versus an epidural which would require her to stay in the hospital a lot longer-defer for conservative management for now - continue Nucynta 50 mg p.o. every 6 hours as needed for breakthrough pain-can increase to 74mg q4h if needed as per Pain Man -continue Nucynta ER 50 bid -Consider Butrans patch versus fentanyl patch as per pain management if the above plan does not work Recommend follow-up with pain management within 2 weeks as an outpatient -Continue acetaminophen as needed -Continue bowel regimen with senna/docusate and MiraLAX to 17 g twice daily, as well as milk of magnesia as needed -Continue incentive spirometry every hour while awake -OOB to chair and with PT/OT-set for rehab placement today (4) Fracture of thoracic transverse process: Likely Osteoporotic left thoracic T9 and T10 transverse process fractures in elderly female Secondary to fall Seen by orthopedic spine surgery-pain control, no bracing or surgery needed Not causing her pain Physical therapy (5) Aortic stenosis: Mild to moderate on echocardiogram Did not contribute to her fall -Follow as an outpatient (6) Sinus bradycardia: As noted above, persistent sinus bradycardia in the 50s-60s which is now improved to the 60-80s No indication for pacemaker at this time (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 twice daily and cont senna/docusate -give MOM as needed follow closely (8) Diabetes: Blood sugars well controlled here -hemoglobin A1c 7.2% -Restart metformin from home 500 mg once daily (9) Hypothyroidism: TSH mildly elevated at 5.3, normal free T4 Given history of falls and ambulatory dysfunction, checked TSH -follow-up as an outpatient -Continue home levothyroxine dose (10) Osteoporosis: Has been on Forteo and follows with endocrinology With osteoporotic fractures as above and also a history of compression fractures -Continue Forteo upon discharge Vitamin D level was excellent at 47 in 10/2018 -Continue home Caltrate, Calcitriol -started Calcitonin nasal spray as per Pain Man for bony pain -Follows with endocrinology Dr. Mistry at [facility] (11) HTN (hypertension): Blood pressures normally well controlled and only on minimal dosing of lisinopril which has been held as above Blood pressure is elevated here likely secondary to pain although now improving with better pain control -Continue to follow blood pressures and could restart lisinopril if continue to be elevated (12) DVT prophylaxis: Lovenox SQ Disposition-stable for discharge to rehab today at [facility] DNR/DNI Total Time Total Time Spent Total Time Spent (In Minutes): 45 min Total Time Includes: Examination of the Patient, Discharge Planning and Medication Reconciliation Discharge Plan Discharge Items Patient Disposition: Transfer [facility] Fac Reason For Visit: FALL Discharge Diagnosis: Fall, rib fractures, thoracic spine transverse process fractures Condition on Discharge: Fair Activity: As commented below Lifting: No more than 5 pounds Bathing: No limitations Exercise/Sports: Gradually increase as tolerated Exercise Comment: with PT/OT Weightbearing: Full weightbearing Non-emergency contact: Primary Care Provider Call non-emergency contact if: you have any medication questions, your symptoms worsen, your pain is not controlled, your pain is worsening, your pain is unusual for you, your pain is concerning for you and your temperature is above 101 Follow-up/Referrals: Krunal Salcido [Primary Care Provider] - Diet: Regular Addtl Attending Provider Instructions: Ms. Gonzales was admitted after a fall and found to have left-sided rib fractures and left-sided thoracic transverse process fractures. Because of her significant pain, she was seen by pain management and was started on Nucynta ER 50mg twice a day and can take Nucynta 50mg immediate release every 4 hours as needed for breakthrough pain. She has chronic issues with constipation and should be maintained on MiraLAX 17 g p.o. twice daily, senna/docusate once daily, and milk of magnesia as needed with careful monitoring of her colostomy output. Pending Studies at Discharge: No Stand-Alone Forms: [facility] Skilled Items Patient informed of condition?: Yes DNR: Yes Discharge Level of Care: Skilled Communicable Disease: No Discharge Prognosis: Improving Lines: None Urinary Catheter: No Medications and DC Order Prescriptions: New acetaminophen [Mapap (acetaminophen)] 325 mg Tablet 650 mg PO Q4H PRN (Reason: pain) Qty: 30 RF: 0 Nucynta 50 mg Tablet 50 mg PO Q4H PRN (Reason: breakthrough pain) Qty: 30 RF: 0 Nucynta ER 50 mg Tablet Extended Release 12 Hr 50 mg PO Q12 Qty: 60 RF: 0 magnesium hydroxide [Milk of Magnesia] 400 mg/5 mL Suspension 30 ml PO Q6H PRN (Reason: constipation) Qty: 118 RF: 0 sennosides-docusate sodium [Senokot-S] 8.6-50 mg Tablet 1 tab PO QAM Qty: 30 RF: 0 calcitonin (salmon) 200 unit/actuation [place],Non-Aerosol 1 spray NA QAM Qty: 3.7 RF: 0 lidocaine 5 % Adhesive Patch,Medicated 1 patch transdermal QAM Qty: 15 RF: 0 Continued Forteo 20 mcg/dose - 600 mcg/2.4 mL pen injector 20 mcg SQ DAILY Qty: 2.4 RF: 5 Myrbetriq 50 mg tablet extended release 24 hr 50 mg PO DAILY Qty: 90 RF: 3 calcitriol 0.25 mcg capsule 0.25 mcg PO DAILY Qty: 30 RF: 5 amoxicillin 500 mg tablet 500 mg PO DAILY Qty: 90 RF: 1 vitamin E 200 unit Capsule 200 unit PO DAILY RF: 0 levothyroxine 75 mcg Tablet 75 mcg PO DAILY RF: 0 cranberry extract 250 mg Capsule 250 mg PO DAILY RF: 0 ascorbic acid (vitamin C) [Vitamin C] 500 mg Tablet 500 mg PO DAILY RF: 0 Centrum Silver Women 8 mg iron-400 mcg-300 mcg Tablet 1 tab PO DAILY RF: 0 Caltrate 600 plus D 600 mg (1,500 mg)-800 unit Tablet,Chewable 1 tab PO BID RF: 0 aspirin 81 mg Tablet,Delayed Release (Dr/Ec) 81 mg PO DAILY RF: 0 acetaminophen [Acetaminophen Extra Strength] 500 mg Tablet 500 mg PO QPM RF: 0 metformin 500 mg tablet 500 mg PO DAILY RF: 0 cyanocobalamin (vitamin B-12) 500 mcg Tablet 500 mcg PO DAILY RF: 0 ferrous gluconate 240 mg (27 mg iron) Tablet 240 mg PO DAILY RF: 0 folic acid 0.8 mg Capsule 0.8 mg PO DAILY RF: 0 Changed polyethylene glycol 3350 [Miralax] 17 gram Powder In Packet 17 g PO BID Qty: 0 RF: 0 Discontinued lisinopril 2.5 mg Tablet 2.5 mg PO DAILY RF: 0 Discharge Orders: Discharge Order (Routine); Ordered 09/24/19 Ordered By: Mari Person/Other Patient Handouts: Diabetes Type 2 Managing Admission Data Admit Date/Time: 09/20/19 06:27 Attending Provider: Mari Bosch Admit Provider: Aric Mock Primary Care Provider: Krunal Salcido Other Providers: Hill Powell ; Ulysses De Leon ; Ranjan Pineda ; Ivan Nicholas Coding Level of Care Code D/C Day Management >30 mins Diagnoses Fall W19.XXXA Encounter type: initial encounter Acute electrocardiogram changes R94.31 Fracture, ribs S22.42XA Encounter type: initial encounter Fracture type: closed Laterality: left Rib fracture type: multiple ribs Fracture of thoracic transverse process S22.009A Aortic stenosis I35.0 Sinus bradycardia R00.[address] Z93.3 Diabetes E11.9 Diabetes mellitus type: type 2 Diabetes mellitus butter maker insulin use: without butter maker use Diabetes mellitus complication status: without complication Hypothyroidism E03.9 Hypothyroidism type: unspecified Osteoporosis M81.0 HTN (hypertension) I10 DVT prophylaxis Z29.9
[2019-09-24] MEDS: TAPENTADOL HCL 50 MG TAB PO PRN (12:20)
--- NOTE | 2019-09-29 04:42 | Billing Data ---
Date of Service September 29, 2019 Coding Level of Care Code 55217 Initial Inpt Care Lvl 2
== END 2019-09-24 13:55 | DRG 544 ==
LOC: ED 02:16 → SUATTDRO 06:27 → 2N 06:27